=== PATIENT | male | born 1960 | race African-American/Black ===

== ENCOUNTER 2020-02-02 00:06 | Inpatient (IN) | payer OTHER ==
[2020-02-02 00:24] LABS: #Eosinphils 0.1 thou/uL (0.0-0.7); #Lymphocytes 1.2 thou/uL (1.20-3.40); #Monocytes 0.7 thou/uL (0.11-0.59); #Neutrophils 8.1 thou/uL (1.40-6.50); %Basophils 0.3 % (0.0-1.0); %Eosinophils 0.5 % (0.0-10.0); %Lymphocytes 11.5 % (21.0-51.0); %Monocytes 6.9 % (0.0-10.0); %Neutrophils 80.7 % (42.0-75.0); Hemoglobin 13.6 g/dL (14.0-18.0); Mean Corpuscular HGB CONC 34.9 g/dL (32.0-36.0); Mean Corpuscular Hemoglobin 34.7 pg (27.0-31.0); Mean Corpuscular Volume 99.3 fL (78.0-98.0); Platelet Count 202 thou/uL (130-400); RBC Distribution Width 12.3 % (11.5-14.5); Red Blood Cell (RBC) Count 3.92 mill/uL (4.70-6.10)
[2020-02-02] MEDS ORDERED: methylPREDNISolone Sod Succ/PF 125 MG/2 ML VIAL ONE (00:27)
[2020-02-02 00:31] LABS: INR-International Normal Ratio 1.2; PTT 27.2 sec (22.9-36.1); Prothrombin Time 15.1 sec (12.0-14.7)
[2020-02-02 00:34] LABS: Actual Bicarbonate (HCO3a) 16.4 mEq/L (22-28); Analyzer IN Cardio ER; Base Excess (BEa) -8.5 mEq/L (-2.0 to +3.0); CO2 Tension 32.1 mmHg (35.0-45.0); Calcium, Ionized (arterial) 0.73 mmol/L (1.12-1.30); Carboxyhemoglobin (COHb) 1.6 gm% (0.0-3.0); Hemoglobin (Hb) 12.5 g/dL (14.0-18.0); O2 Tension (PaO2), arterial 242.8 mmHg (80.0-100.0); Potassium - ABG Lab 2.86 mmol/L (3.70-5.30); pH, Arterial 7.33 (7.35-7.45)
[2020-02-02] MEDS ORDERED: Norepinephrine 8 MG/0.9% NS 250 ML ONE (00:35)
[2020-02-02 00:38] LABS: ALV-art Gradient 430.075 mmHg (0-20); Puncture Site RBA
[2020-02-02 00:40] LABS: ALT (SGPT) 37 U/L (8-55); AST (SGOT) 96 U/L (5-34); Albumin 2.9 g/dL (3.5-5.0); Alcohol 231 mg/dL (Less than 10); Alkaline Phosphatase 58 U/L (40-110); Anion Gap 16 mmol/L (10-20); BUN (Urea Nitrogen) 8 mg/dL (8.4-25.7); Bilirubin, Total 0.3 mg/dL (0.2-1.2); Calc. Creatinine Clearance 0 mL/min (70-130); Carbon Dioxide 15 mmol/L (22-29); Chloride 107 mmol/L (98-107); Globulin 2.4 g/dL (2.4-3.5); Glucose 250 mg/dL (70-105); Potassium 3.4 mmol/L (3.5-5.1); Protein, Total 5.3 g/dL (6.0-8.3); Sodium 135 mmol/L (136-145)
[2020-02-02] MEDS ORDERED: Propofol 1,000 MG/100 ML VIAL IV ONE (00:45)
[2020-02-02] MEDS ORDERED: Midazolam HCl 2 mg/2 ml Vial ONE (00:45)
[2020-02-02 01:07] LABS: CKMB 66.3 ng/mL (0-6.6)
[2020-02-02] MEDS ORDERED: Fentanyl 100 MCG/2 ML VIAL ONE (01:07)
[2020-02-02 01:14] LABS: SARS-CoV-2 NAA Rapid Test Not Detected (NotDetected)
[2020-02-02] MEDS ORDERED: Dextrose 50% Abboject 50 ML SYRINGE SLOW IVP PRN (01:44)
[2020-02-02] MEDS ORDERED: Ondansetron PF 4 MG/2 ML Vial IVP PRN (01:44)
[2020-02-02] MEDS ORDERED: Dextrose 5% in Water 1,000 ML IV PRN (01:44)
[2020-02-02] MEDS ORDERED: fentaNYL Citrate/PF 2,000 MCG in Sodium Chloride 0.9% 60 ML IV SCH (01:45)
[2020-02-02] MEDS ORDERED: Morphine 2 MG/ML VIAL SLOW IVP PRN (02:00)
[2020-02-02] MEDS ORDERED: Fentanyl BOLUS 250 ML IVPB PRN ×2 (02:00→23:45)
[2020-02-02] MEDS ORDERED: Propofol BOLUS 1,000 MG/100 ML VIAL IV PRN (02:00)
[2020-02-02] MEDS ORDERED: Ventilator Sedation Protocol 1 EACH FS SCH (02:00)
[2020-02-02] MEDS ORDERED: Lorazepam 2 MG/ML VIAL SLOW IVP PRN ×2 (02:00→15:25)
[2020-02-02 02:12] LABS: #Lymphocytes 0.9 thou/uL (1.20-3.40); #Monocytes 1.2 thou/uL (0.11-0.59); #Neutrophils 9.2 thou/uL (1.40-6.50); %Basophils 0.3 % (0.0-1.0); %Eosinophils 0.2 % (0.0-10.0); %Lymphocytes 8.3 % (21.0-51.0); %Monocytes 10.2 % (0.0-10.0); %Neutrophils 80.9 % (42.0-75.0); Hemoglobin 13.3 g/dL (14.0-18.0); Mean Corpuscular HGB CONC 32.9 g/dL (32.0-36.0); Mean Corpuscular Hemoglobin 32.9 pg (27.0-31.0); Mean Platelet Volume 7.4 fL (7.4-10.4); Platelet Count 184 thou/uL (130-400); RBC Distribution Width 12.8 % (11.5-14.5); Red Blood Cell (RBC) Count 4.03 mill/uL (4.70-6.10); White Blood Cell (WBC) Count 11.3 thou/uL (4.8-10.8)
[2020-02-02 02:35] LABS: Lactic Acid 9.7 mmol/L (0.5-2.2)
[2020-02-02 02:41] LABS: Anion Gap 22 mmol/L (10-20); BUN (Urea Nitrogen) 9 mg/dL (8.4-25.7); Calc. Creatinine Clearance 0 mL/min (70-130); Calcium 8.1 mg/dL (7.8-10.44); Carbon Dioxide 15 mmol/L (22-29); Chloride 106 mmol/L (98-107); Glucose 173 mg/dL (70-105); Magnesium 2.3 mg/dL (1.6-2.6); Phosphorus 4.3 mg/dL (2.3-4.7); Potassium 3.9 mmol/L (3.5-5.1); Sodium 139 mmol/L (136-145)
[2020-02-02] MEDS: Sodium Chloride 0.9% 1,000 ML IV SCH ×4 (03:30→23:10)
[2020-02-02 03:39] LABS: Actual Bicarbonate (HCO3a) 18.2 mEq/L (22-28); Analyzer IN Cardio ER; Base Excess (BEa) -6.1 mEq/L (-2.0 to +3.0); CO2 Tension 32.3 mmHg (35.0-45.0); Calcium, Ionized (arterial) 1.07 mmol/L (1.12-1.30); Carboxyhemoglobin (COHb) 0.3 gm% (0.0-3.0); Hemoglobin (Hb) 12.7 g/dL (14.0-18.0); O2 Tension (PaO2), arterial 474.4 mmHg (80.0-100.0); Potassium - ABG Lab 3.36 mmol/L (3.70-5.30); pH, Arterial 7.37 (7.35-7.45)
[2020-02-02 03:44] LABS: ALV-art Gradient 198.225 mmHg (0-20); Puncture Site A-LINE
[2020-02-02 04:50] LABS: Bilirubin Negative (Negative); Blood, Urine Large (Negative); Glucose, Urine (Dipstick) 100 mg/dL (Negative); Ketone, Urine Negative (Negative); Leukocyte Negative (Negative); Nitrite Negative (Negative); Protein, Urine (Dipstick) 30 mg/dL (Neg-Trace); Urobilinogen 0.2 mg/dL (Less than 2)
[2020-02-02] MEDS ORDERED: Fentanyl 100 MCG/2 ML VIAL SLOW IVP PRN ×2 (04:57→15:22)
[2020-02-02 05:02] LABS: Medtox Reader # READER 4; Phencyclidine (PCP) Not Detected (NotDetected); THC/Cannabinoid Screen Not Detected (NotDetected)
[2020-02-02 05:03] LABS: Amphetamine Not Detected (NotDetected); Barbiturates Screen Not Detected (NotDetected); Benzodiazepine Screen Not Detected (NotDetected); Cocaine Metabolite Screen Detected (NotDetected); Medtox Control Line Valid? VALID (VALID); Methadone Not Detected (NotDetected); Methamphetamine Not Detected (NotDetected); Opiate Screen Not Detected (NotDetected); Oxycodone Screen Not Detected (NotDetected); Tricyclic Screen Not Detected (NotDetected)
[2020-02-02 05:06] LABS: Bacteria/HPF Rare-Few HPF (None Seen); Clarity Clear (Clear); RBC/HPF 21-50 HPF (0-3); Squamous Epithelial 0-3 HPF (0-3); WBC/HPF 0-3 HPF (0-3)
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
[2020-02-02 06:25] LABS: Lactic Acid 3.8 mmol/L (0.5-2.2)
[2020-02-02 06:33] LABS: Anion Gap 16 mmol/L (10-20); BUN (Urea Nitrogen) 9 mg/dL (8.4-25.7); Calc. Creatinine Clearance 0 mL/min (70-130); Calcium 7.6 mg/dL (7.8-10.44); Carbon Dioxide 21 mmol/L (22-29); Chloride 108 mmol/L (98-107); Glucose 164 mg/dL (70-105); Magnesium 1.6 mg/dL (1.6-2.6); Phosphorus 2.1 mg/dL (2.3-4.7); Potassium 3.6 mmol/L (3.5-5.1); Sodium 141 mmol/L (136-145)
[2020-02-02 06:37] LABS: Troponin I 0.677 ng/mL (< 0.028)
[2020-02-02] MEDS ORDERED: Potassium Phosphate 30 MMOL in Sodium Chloride 0.9% 250 ML 250 ML IVPB SCH (06:45)
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
[2020-02-02] MEDS ORDERED: Magnesium 2 GM/50 ML 2 GM in Premix Bag 1 BAG IVPB SCH (07:30)
--- NOTE | 2020-02-02 07:51 | RAD ---
EXAM: XR Pelvis AP STANDARD PROVIDED CLINICAL HISTORY: Trauma COMPARISON: None FINDINGS: Partially visualized comminuted right subtrochanteric femoral fracture. Mildly displaced intertrochan teric left proximal femoral fracture. No additional fracture is evident. Hip joint spaces appear maintained. IMPRESSION: Bilateral proximal femoral fractures.
--- NOTE | 2020-02-02 07:52 | RAD ---
EXAM: XR Ankle Lt 2 View PROVIDED CLINICAL HISTORY: Trauma COMPARISON: None FINDINGS: Markedly comminuted, displaced and apex anteriorly-laterally angulated fracture of the distal tibial metadiaphyseal region with intra-articular extension and medial malleolar fragment. Displaced and laterally angulated distal fibular diaphyseal fracture. The ankle mortise appears maintained. No nadine tional fracture is evident. IMPRESSION: Displaced distal tibial and fibular fractures.
[2020-02-02 07:53] LABS: Actual Bicarbonate (HCO3a) 19.9 mEq/L (22-28); Base Excess (BEa) -3.4 mEq/L (-2.0 to +3.0); CO2 Tension 30.6 mmHg (35.0-45.0); Calcium, Ionized (arterial) 1.08 mmol/L (1.12-1.30); Carboxyhemoglobin (COHb) 0.3 gm% (0.0-3.0); Hemoglobin (Hb) 12.2 g/dL (14.0-18.0); O2 Tension (PaO2), arterial 486.6 mmHg (80.0-100.0); Potassium - ABG Lab 3.72 mmol/L (3.70-5.30); pH, Arterial 7.43 (7.35-7.45)
--- NOTE | 2020-02-02 07:53 | RAD ---
EXAM: XR Forearm Lt 2 View STANDARD PROVIDED CLINICAL HISTORY: Trauma COMPARISON: None FINDINGS: Nondisplaced supracondylar distal humeral fracture. No evidence for forearm fracture. IMPRESSION: As above.
--- NOTE | 2020-02-02 07:54 | RAD ---
EXAM: XR Elbow Lt 2 View PROVIDED CLINICAL HISTORY: Trauma COMPARISON: None FINDINGS: Supracondylar distal humeral fracture, without evidence for intra-articular extension. Mild displacem ent. No additional fracture. Alignment appears otherwise anatomic. IMPRESSION: As above.
--- NOTE | 2020-02-02 07:56 | RAD ---
EXAM: XR Chest 1 View Portable PROVIDED CLINICAL HISTORY: Trauma COMPARISON: None FINDINGS: Cardiac and mediastinal silhouette is within normal limits. Endotracheal tube is noted, tip of which projects just inferior to the thoracic inlet. No focal consolidation is evident. The supine nature the examination is limited in sensitivity for detection of pleural fluid and pneumothorax, without ev idence for such. Correlate with subsequently performed chest CT. IMPRESSION: As above.
[2020-02-02 07:59] LABS: Puncture Site ALINE
--- NOTE | 2020-02-02 07:59 | RAD ---
EXAM: XR Hand Lt 2 View PROVIDED CLINICAL HISTORY: Trauma COMPARISON: None FINDINGS: There is an irregular appearance to the thumb metacarpal cortex distally, with multiple osseous densi ties seen. This is compatible with age-indeterminate fracture. No additional fracture is evident. Degenerative changes are seen at the STT joint. There is apparent widening of the scapholunate interv al. IMPRESSION: 1. Age-indeterminate fracture thumb metacarpal distally. Correlation with dedicated thumb radiographs recommended. 2. Widening of the scapholunate interval compatible with scapholunate insufficiency. Correlation with dedicated wrist radiographs recommended.
[2020-02-02] MEDS ORDERED: Calcium Chloride 1 GM/10 ML Abboject SYRINGE IVP SCH (08:00)
--- NOTE | 2020-02-02 08:00 | RAD ---
EXAM: XR Femur Lt 2 View STANDARD PROVIDED CLINICAL HISTORY: Trauma COMPARISON: None FINDINGS: Displaced intertrochanteric left proximal femoral fracture. No additional fracture is evident. IMPRESSION: As above.
--- NOTE | 2020-02-02 08:01 | RAD ---
EXAM: XR Femur Rt 2 View STANDARD PROVIDED CLINICAL HISTORY: Trauma COMPARISON: None FINDINGS: There is a comminuted, displaced fracture of the subtrochanteric right proximal femoral diaphysis wit h butterfly fragment. There is conspicuous apex lateral angulation. Advanced degenerative changes are partially visualized at the knee. No additional fracture is evident. IMPRESSION: Comminuted, displaced subtrochanteric right proximal femoral fracture.
--- NOTE | 2020-02-02 08:19 | RAD ---
XR Ankle Rt 2 View INDICATION: Trauma COMPARISON: None. FINDINGS: Bones: There is a segmental fracture involving the distal fibular shaft. The comminuted mid shaft fib ular fracture component is displaced laterally one half shaft width. There is an obliquely oriented nondisplaced distal fibular shaft component. Ankle mortise: Symmetric. Talar Dome: Intact. Subtalar joint: Normal. Visualized hindfoot: There is enthesopathic change off the calcaneus. Periarticular soft tissues: There is soft tissue gas involving the tibiotalar joint, medial ankle sof t tissues and the dorsal aspect of the foot suspicious for extensive laceration. No radiopaque foreign body is evident. IMPRESSION: 1. Segmental mildly displaced fibular shaft fracture. 2. Soft tissue injury to the ankle and hindfoot suspicious for lacerations. No radiopaque foreign bod y demonstrated. There is a suspected open injury to the right ankle.
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
[2020-02-02] MEDS: Famotidine/PF 20 mg/2ml Vial SLOW IVP SCH ×2 (08:48→21:12)
[2020-02-02] MEDS: Propofol 1,000 MG/100 ML VIAL IV PRN ×4 (08:51→22:11)
[2020-02-02] MEDS ORDERED: Famotidine/PF 20 mg/2ml Vial SLOW IVP SCH (09:00)
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
[2020-02-02] MEDS ORDERED: Calcium Chloride 1 GM/10 ML Abboject SYRINGE ONE (12:23)
[2020-02-02] MEDS ORDERED: EPINEPHrine 1 MG/10 ML Abboject SYRINGE ONE (12:23)
[2020-02-02] MEDS ORDERED: Sodium Bicarb 50 MEQ/50 ML Abboject 8.4% SYRINGE ONE (12:23)
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
[2020-02-02] MEDS ORDERED: Iopamidol-370 76% 500 ML 1 ML ONE (14:05)
[2020-02-02] MEDS: CEFAZOLIN 2 GM in Premix Bag 1 BAG IVPB SCH ×2 (14:34→21:11)
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
[2020-02-02 15:16] LABS: Lactic Acid 2.8 mmol/L (0.5-2.2)
[2020-02-02 15:19] LABS: Anion Gap 13 mmol/L (10-20); BUN (Urea Nitrogen) 12 mg/dL (8.4-25.7); Calc. Creatinine Clearance 98 mL/min (70-130); Calcium 7.8 mg/dL (7.8-10.44); Carbon Dioxide 22 mmol/L (22-29); Chloride 108 mmol/L (98-107); Glucose 143 mg/dL (70-105); Potassium 4.9 mmol/L (3.5-5.1); Sodium 138 mmol/L (136-145)
[2020-02-02 15:25] LABS: Band 30 % (5-11); Lymphocytes 5 % (21-51); MDiff Complete? YES; Mean Corpuscular HGB CONC 34.5 g/dL (32.0-36.0); Mean Corpuscular Hemoglobin 33.6 pg (27.0-31.0); Mean Corpuscular Volume 97.5 fL (78.0-98.0); Mean Platelet Volume 7.3 fL (7.4-10.4); Monocytes 11 % (0-10); Neutrophil 50 % (42-75); Platelet Count 153 thou/uL (130-400); Platelet Morphology Comment Appears Adequate; Polychromasia SLIGHT = 2-3 cells (100X) (0-2/hpf); RBC Distribution Width 12.9 % (11.5-14.5); Reactive Lymphocytes 4 % (0-10); Red Blood Cell (RBC) Count 3.26 mill/uL (4.70-6.10); White Blood Cell (WBC) Count 7.8 thou/uL (4.8-10.8)
[2020-02-02] MEDS: Lorazepam 2 MG/ML VIAL SLOW IVP PRN (15:37)
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
[2020-02-02] MEDS: Oxazepam 10 MG CAP PO SCH (21:12)
[2020-02-02] MEDS ORDERED: Sodium Chloride 0.9% 1,000 ML IV SCH (21:15)
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
[2020-02-02] MEDS: Acetaminophen 650 MG/20.3 ML UDCUP PO SCH (23:08)
[2020-02-02] MEDS ORDERED: fentaNYL Citrate/PF 2,000 MCG in Sodium Chloride 0.9% 60 ML IV PRN (23:33)
[2020-02-03] MEDS: fentaNYL Citrate/PF 2,000 MCG in Sodium Chloride 0.9% 60 ML IV SCH ×2 (01:48→19:17)
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
[2020-02-03] MEDS: Acetaminophen 650 MG/20.3 ML UDCUP PO SCH ×3 (05:13→17:30)
[2020-02-03] MEDS: CEFAZOLIN 2 GM in Premix Bag 1 BAG IVPB SCH ×3 (05:13→22:23)
[2020-02-03] MEDS: Oxazepam 10 MG CAP PO SCH ×3 (05:13→22:24)
[2020-02-03] MEDS: Sodium Chloride 0.9% 1,000 ML IV SCH (05:26)
[2020-02-03] MEDS: Propofol 1,000 MG/100 ML VIAL IV PRN ×2 (05:51→19:21)
[2020-02-03 05:55] LABS: Lactic Acid 3.3 mmol/L (0.5-2.2)
[2020-02-03 05:57] LABS: Band 14 % (5-11); Hemoglobin 9.4 g/dL (14.0-18.0); Lymphocytes 20 % (21-51); MDiff Complete? YES; Mean Corpuscular HGB CONC 34.1 g/dL (32.0-36.0); Mean Corpuscular Hemoglobin 33.8 pg (27.0-31.0); Mean Corpuscular Volume 99.3 fL (78.0-98.0); Mean Platelet Volume 7.2 fL (7.4-10.4); Monocytes 8 % (0-10); Neutrophil 58 % (42-75); Platelet Count 127 thou/uL (130-400); RBC Distribution Width 12.7 % (11.5-14.5); Red Blood Cell (RBC) Count 2.78 mill/uL (4.70-6.10); White Blood Cell (WBC) Count 6.2 thou/uL (4.8-10.8)
[2020-02-03 06:02] LABS: Anion Gap 10 mmol/L (10-20); BUN (Urea Nitrogen) 13 mg/dL (8.4-25.7); Calc. Creatinine Clearance 113 mL/min (70-130); Calcium 7.6 mg/dL (7.8-10.44); Carbon Dioxide 26 mmol/L (22-29); Chloride 110 mmol/L (98-107); Glucose 150 mg/dL (70-105); Magnesium 2.4 mg/dL (1.6-2.6); Phosphorus 2.9 mg/dL (2.3-4.7); Potassium 4.2 mmol/L (3.5-5.1); Sodium 142 mmol/L (136-145)
[2020-02-03 06:29] LABS: CK (CPK) 10834 U/L (30-200)
[2020-02-03] MEDS ORDERED: NEOMYCIN-POLYMYXIN-HC EAR SUSP 200 DROP/10 ML BOT ONE (06:36)
[2020-02-03] MEDS ORDERED: Midazolam HCl 5 mg/5 ml Vial ONE (07:29)
[2020-02-03] MEDS ORDERED: Phenylephrine 10 MG/ML VIAL ONE (07:29)
[2020-02-03] MEDS ORDERED: Fentanyl 250 MCG/5 ML VIAL ONE (07:29)
[2020-02-03] MEDS ORDERED: Neomycin-Polymyxin 1 ML AMP ONE (07:41)
[2020-02-03 07:50] LABS: Actual Bicarbonate (HCO3a) 25.2 mEq/L (22-28); Base Excess (BEa) -0.6 mEq/L (-2.0 to +3.0); CO2 Tension 46.5 mmHg (35.0-45.0); Carboxyhemoglobin (COHb) 0.3 gm% (0.0-3.0); Hemoglobin (Hb) 9.4 g/dL (14.0-18.0); O2 Tension (PaO2), arterial 136.8 mmHg (80.0-100.0); Potassium - ABG Lab 4.21 mmol/L (3.70-5.30); pH, Arterial 7.35 (7.35-7.45)
[2020-02-03 07:51] LABS: Puncture Site LINE
[2020-02-03 07:52] LABS: ALV-art Gradient 161.575 mmHg (0-20)
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
[2020-02-03] MEDS ORDERED: PHENYLEPHRINE-NS 100 MCG/ML 10 ML SYRINGE ONE (09:37)
[2020-02-03] MEDS ORDERED: Rocuronium Bromide 10 MG/ML (10ML VIAL) ONE (09:37)
[2020-02-03] MEDS ORDERED: Vecuronium 10 MG VIAL ONE (09:37)
[2020-02-03] MEDS ORDERED: Calcium Chloride 1 GM/10 ML Abboject SYRINGE IVP SCH (10:00)
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
[2020-02-03] MEDS: Famotidine/PF 20 mg/2ml Vial SLOW IVP SCH ×2 (12:17→20:25)
[2020-02-03] MEDS: Multivitamin W/ Minerals 1 TAB PO SCH (12:17)
[2020-02-03] MEDS: Thiamine 100 MG TAB PO SCH (12:17)
[2020-02-03] MEDS: Folic Acid 1 MG TAB PO SCH (12:17)
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
[2020-02-03] MEDS: Lactated Ringer's 1,000 ML IV SCH ×3 (13:16→20:22)
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
--- NOTE | 2020-02-03 13:39 | RAD ---
Exam: Left hip 2 views: HISTORY: Status post trochanteric nail placement with 4 portable fluoroscopic spot views. COMPARISON: 02/02/2020 FINDINGS: Image documentation for intratrochanteric hip nail placement without periprostatic fracture or disloc ation. IMPRESSION: Intertrochanteric hip nail placement.
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
--- NOTE | 2020-02-03 13:51 | PRG ---
DATE OF SERVICE: 02/03/2020 Mr. Lynch is just back from orthopedic surgery and could not be examined. A followup MRI scan for a possible abnormality in the thoracic spine was largely unremarkable. With respect to his L4 fracture, we are awaiting his brace. Once the brace is placed, it should be on at all times and we can then consider gradual mobilization in the context of treatment of his other injuries. Job ID: [id number]
--- NOTE | 2020-02-03 14:24 | EKG ---
Test Reason : Blood Pressure : / mmHG Vent. Rate : 104 BPM Atrial Rate : 104 BPM P-R Int : 142 ms QRS Dur : 082 ms QT Int : 374 ms P-R-T Axes : 071 -57 045 degrees QTc Int : 491 ms Sinus tachycardia Left anterior fascicular block Junctional ST depression, probably normal Abnormal ECG Confirmed by JASSON LOMELI DO ([id number]), proposal editor SOURAV BRIGHT ([id number]) on 02/03/2020 2:24:33 PM Referred By: Confirmed By:JASSON LOMELI DO
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
[2020-02-03 15:25] LABS: Actual Bicarbonate (HCO3a) 23.3 mEq/L (22-28); Base Excess (BEa) -3.2 mEq/L (-2.0 to +3.0); CO2 Tension 48.2 mmHg (35.0-45.0); Calcium, Ionized (arterial) 1.18 mmol/L (1.12-1.30); Carboxyhemoglobin (COHb) 0.3 gm% (0.0-3.0); Hemoglobin (Hb) 10.7 g/dL (14.0-18.0); O2 Tension (PaO2), arterial 103.1 mmHg (80.0-100.0); Potassium - ABG Lab 4.48 mmol/L (3.70-5.30)
[2020-02-03 15:44] LABS: Hemoglobin 8.3 g/dL (14.0-18.0); Mean Corpuscular HGB CONC 34.7 g/dL (32.0-36.0); Mean Corpuscular Hemoglobin 33.9 pg (27.0-31.0); Mean Corpuscular Volume 97.8 fL (78.0-98.0); Mean Platelet Volume 7.5 fL (7.4-10.4); Platelet Count 129 thou/uL (130-400); RBC Distribution Width 12.6 % (11.5-14.5); Red Blood Cell (RBC) Count 2.45 mill/uL (4.70-6.10); White Blood Cell (WBC) Count 5.6 thou/uL (4.8-10.8)
[2020-02-03 16:02] LABS: Lactic Acid 3.8 mmol/L (0.5-2.2)
[2020-02-03 16:06] LABS: Anion Gap 13 mmol/L (10-20); BUN (Urea Nitrogen) 12 mg/dL (8.4-25.7); Calc. Creatinine Clearance 125 mL/min (70-130); Calcium 8.2 mg/dL (7.8-10.44); Carbon Dioxide 23 mmol/L (22-29); Chloride 111 mmol/L (98-107); Glucose 213 mg/dL (70-105); Magnesium 2.2 mg/dL (1.6-2.6); Phosphorus 2.5 mg/dL (2.3-4.7); Potassium 4.5 mmol/L (3.5-5.1); Sodium 142 mmol/L (136-145)
[2020-02-03 16:33] LABS: CK (CPK) 9830 U/L (30-200)
[2020-02-03] MEDS: Piperacillin/Tazobactam 3.375 GM in Sodium Chloride 0.9% 100 ML IVPB SCH (20:22)
[2020-02-03] MEDS: Silver Sulfadiazine 50 GM TUBE TOP SCH (20:30)
[2020-02-03 22:10] LABS: Hemoglobin 7.6 g/dL (14.0-18.0); Mean Corpuscular HGB CONC 34.3 g/dL (32.0-36.0); Mean Corpuscular Hemoglobin 34.1 pg (27.0-31.0); Mean Corpuscular Volume 99.5 fL (78.0-98.0); Mean Platelet Volume 7.5 fL (7.4-10.4); Platelet Count 120 thou/uL (130-400); RBC Distribution Width 12.5 % (11.5-14.5); Red Blood Cell (RBC) Count 2.24 mill/uL (4.70-6.10); White Blood Cell (WBC) Count 3.8 thou/uL (4.8-10.8)
[2020-02-03 22:26] LABS: Lactic Acid 2.9 mmol/L (0.5-2.2)
[2020-02-03 22:42] LABS: Anion Gap 10 mmol/L (10-20); BUN (Urea Nitrogen) 10 mg/dL (8.4-25.7); Calc. Creatinine Clearance 133 mL/min (70-130); Calcium 7.7 mg/dL (7.8-10.44); Carbon Dioxide 26 mmol/L (22-29); Chloride 111 mmol/L (98-107); Glucose 139 mg/dL (70-105); Magnesium 2.1 mg/dL (1.6-2.6); Phosphorus 1.7 mg/dL (2.3-4.7); Potassium 4.4 mmol/L (3.5-5.1); Sodium 143 mmol/L (136-145)
[2020-02-03] MEDS ORDERED: Sodium Phosphate 30 MMOL in Sodium Chloride 0.9% 250 ML 250 ML IVPB SCH (23:00)
--- NOTE | 2020-02-03 23:51 | RAD ---
XR Chest 1 View Portable HISTORY: Respiratory failure, decreasing oxygen saturations COMPARISON: Earlier exam of 5:28 AM from same date FINDINGS: Endotracheal and nasogastric tubes remain in place. The heart size is stable. Interval wors ening of opacities in the lower lung zones is seen. No pneumothoraces are identified. Accompanying small effusions cannot be excluded.
[2020-02-04 00:05] LABS: Actual Bicarbonate (HCO3a) 24.6 mEq/L (22-28); Base Excess (BEa) -0.4 mEq/L (-2.0 to +3.0); CO2 Tension 41.8 mmHg (35.0-45.0); Calcium, Ionized (arterial) 1.09 mmol/L (1.12-1.30); Carboxyhemoglobin (COHb) 0.4 gm% (0.0-3.0); Hemoglobin (Hb) 8.3 g/dL (14.0-18.0); O2 Tension (PaO2), arterial 80.2 mmHg (80.0-100.0); pH, Arterial 7.39 (7.35-7.45)
[2020-02-04 00:08] LABS: Puncture Site RBA
[2020-02-04] MEDS: Acetaminophen 650 MG/20.3 ML UDCUP PO SCH ×4 (00:34→18:08)
[2020-02-04] MEDS ORDERED: Calcium Chloride 1 GM/10 ML Abboject SYRINGE IVP SCH (01:45)
[2020-02-04] MEDS: Piperacillin/Tazobactam 3.375 GM in Sodium Chloride 0.9% 100 ML IVPB SCH ×4 (02:04→20:04)
[2020-02-04] MEDS: Lactated Ringer's 1,000 ML IV SCH ×5 (02:04→20:11)
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
[2020-02-04] MEDS: Propofol 1,000 MG/100 ML VIAL IV PRN ×4 (03:53→21:51)
[2020-02-04 04:31] LABS: Lactic Acid 3.1 mmol/L (0.5-2.2)
[2020-02-04] MEDS: Lorazepam 2 MG/ML VIAL SLOW IVP PRN (04:37)
[2020-02-04 04:45] LABS: Anion Gap 11 mmol/L (10-20); BUN (Urea Nitrogen) 9 mg/dL (8.4-25.7); Calc. Creatinine Clearance 127 mL/min (70-130); Carbon Dioxide 26 mmol/L (22-29); Chloride 111 mmol/L (98-107); Glucose 128 mg/dL (70-105); Phosphorus 2.4 mg/dL (2.3-4.7); Potassium 4.1 mmol/L (3.5-5.1); Sodium 144 mmol/L (136-145)
[2020-02-04 04:48] LABS: CK (CPK) 6991 U/L (30-200)
[2020-02-04 04:56] LABS: Band 36 % (5-11); Lymphocytes 26 % (21-51); MDiff Complete? YES; Mean Corpuscular HGB CONC 34.4 g/dL (32.0-36.0); Mean Corpuscular Hemoglobin 33.6 pg (27.0-31.0); Mean Corpuscular Volume 97.5 fL (78.0-98.0); Mean Platelet Volume 7.8 fL (7.4-10.4); Metamyelocyte 1 % (0-0); Monocytes 11 % (0-10); Neutrophil 26 % (42-75); Platelet Count 106 thou/uL (130-400); Platelet Morphology Comment Appears Decreased; RBC Distribution Width 13.2 % (11.5-14.5); Red Blood Cell (RBC) Count 2.38 mill/uL (4.70-6.10); White Blood Cell (WBC) Count 1.9 thou/uL (4.8-10.8)
[2020-02-04] MEDS: Oxazepam 10 MG CAP PO SCH ×3 (06:30→21:52)
[2020-02-04] MEDS: CEFAZOLIN 2 GM in Premix Bag 1 BAG IVPB SCH ×3 (06:30→21:51)
[2020-02-04] MEDS: fentaNYL Citrate/PF 2,000 MCG in Sodium Chloride 0.9% 60 ML IV SCH ×2 (07:20→19:50)
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
[2020-02-04 07:39] LABS: CO2 Tension 41.2 mmHg (35.0-45.0); Calcium, Ionized (arterial) 1.14 mmol/L (1.12-1.30); Carboxyhemoglobin (COHb) 0.3 gm% (0.0-3.0); Hemoglobin (Hb) 7.4 g/dL (14.0-18.0); O2 Tension (PaO2), arterial 77.2 mmHg (80.0-100.0); Potassium - ABG Lab 3.95 mmol/L (3.70-5.30); pH, Arterial 7.38 (7.35-7.45)
[2020-02-04 07:43] LABS: Puncture Site L.B.
[2020-02-04] MEDS ORDERED: FLU VACC QS2020-21(6MOS UP)/PF 60 MCG/0.5 ML SYRINGE IM ONE (09:00)
[2020-02-04] MEDS: Famotidine/PF 20 mg/2ml Vial SLOW IVP SCH ×2 (09:13→20:05)
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
--- NOTE | 2020-02-04 09:23 | RAD ---
EXAM: Chest one view: HISTORY: Right lower lobe pneumonia COMPARISON: None FINDINGS: NG tube and endotracheal tubes remain in place. Heart size: Within normal limits. Lungs: Fairly extensive bilateral mostly alveolar patchy parenchymal changes particularly through the mid and lower portions of the lungs IMPRESSION: Evidence for stable extensive bilateral pneumonia
[2020-02-04] MEDS: Multivitamin W/ Minerals 1 TAB PO SCH (10:07)
[2020-02-04] MEDS: Folic Acid 1 MG TAB PO SCH (10:07)
[2020-02-04] MEDS: Thiamine 100 MG TAB PO SCH (10:07)
[2020-02-04] MEDS ORDERED: Furosemide 40 MG/4 ML VIAL ONE (11:44)
[2020-02-04] MEDS ORDERED: Furosemide 20 MG/2 ML VIAL SLOW IVP SCH (11:45)
[2020-02-04] MEDS ORDERED: Vancomycin 1.5 GRAM/300 ML BAG 1.5 GM in Premix Bag 1 BAG IVPB SCH (12:00)
[2020-02-04] MEDS: Silver Sulfadiazine 50 GM TUBE TOP SCH ×2 (13:06→20:12)
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
[2020-02-05] MEDS: Acetaminophen 650 MG/20.3 ML UDCUP PO SCH ×5 (00:28→23:25)
[2020-02-05] MEDS: Piperacillin/Tazobactam 3.375 GM in Sodium Chloride 0.9% 100 ML IVPB SCH ×4 (02:43→21:04)
[2020-02-05 04:32] LABS: #Eosinphils 0.1 thou/uL (0.0-0.7); #Lymphocytes 0.7 thou/uL (1.20-3.40); #Monocytes 0.6 thou/uL (0.11-0.59); #Neutrophils 3.9 thou/uL (1.40-6.50); %Basophils 0.1 % (0.0-1.0); %Eosinophils 1.7 % (0.0-10.0); %Lymphocytes 13.7 % (21.0-51.0); %Neutrophils 73.5 % (42.0-75.0); Hemoglobin 6.3 g/dL (14.0-18.0); Mean Corpuscular HGB CONC 33.9 g/dL (32.0-36.0); Mean Corpuscular Hemoglobin 32.6 pg (27.0-31.0); Mean Corpuscular Volume 96.4 fL (78.0-98.0); Mean Platelet Volume 7.8 fL (7.4-10.4); Platelet Count 127 thou/uL (130-400); RBC Distribution Width 13.4 % (11.5-14.5); Red Blood Cell (RBC) Count 1.92 mill/uL (4.70-6.10); White Blood Cell (WBC) Count 5.3 thou/uL (4.8-10.8)
[2020-02-05 04:56] LABS: Anion Gap 9 mmol/L (10-20); BUN (Urea Nitrogen) 13 mg/dL (8.4-25.7); CK (CPK) 3238 U/L (30-200); Calc. Creatinine Clearance 122 mL/min (70-130); Calcium 7.7 mg/dL (7.8-10.44); Carbon Dioxide 28 mmol/L (22-29); Chloride 110 mmol/L (98-107); Glucose 112 mg/dL (70-105); Magnesium 2.2 mg/dL (1.6-2.6); Phosphorus 2.5 mg/dL (2.3-4.7); Potassium 3.8 mmol/L (3.5-5.1); Sodium 143 mmol/L (136-145)
[2020-02-05] MEDS: Lactated Ringer's 1,000 ML IV SCH ×3 (05:04→20:53)
[2020-02-05] MEDS: CEFAZOLIN 2 GM in Premix Bag 1 BAG IVPB SCH ×2 (05:04→15:47)
[2020-02-05] MEDS: Propofol 1,000 MG/100 ML VIAL IV PRN (05:05)
[2020-02-05] MEDS: Oxazepam 10 MG CAP PO SCH ×3 (05:05→21:05)
[2020-02-05 07:19] LABS: Base Excess (BEa) 1.5 mEq/L (-2.0 to +3.0); CO2 Tension 47.4 mmHg (35.0-45.0); Carboxyhemoglobin (COHb) 0.2 gm% (0.0-3.0); Hemoglobin (Hb) 6.8 g/dL (14.0-18.0); O2 Tension (PaO2), arterial 123.1 mmHg (80.0-100.0); Potassium - ABG Lab 3.76 mmol/L (3.70-5.30); Puncture Site RB; pH, Arterial 7.37 (7.35-7.45)
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
[2020-02-05] MEDS: fentaNYL Citrate/PF 2,000 MCG in Sodium Chloride 0.9% 60 ML IV SCH (08:38)
--- NOTE | 2020-02-05 08:43 | RAD ---
PORTABLE CHEST: HISTORY: Respiratory failure. COMPARISON: Prior day's exam. FINDINGS: Endotracheal and NG tubes remain in satisfactory position. Bibasilar pleural and parenchymal lung ch anges are stable. IMPRESSION: Fairly extensive consolidation in the lung bases with possible associated effusion appears stable as compared to the prior exam. Endotracheal and NG tubes remain in place. POS: OFF
[2020-02-05] MEDS ORDERED: Iopamidol-370 76% 500 ML 1 ML ONE (09:03)
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
[2020-02-05] MEDS ORDERED: Calcium Gluconate 4.6 MEQ in Sodium Chloride 0.9% 100 ML IVPB SCH (09:15)
[2020-02-05] MEDS ORDERED: Furosemide 20 MG/2 ML VIAL SLOW IVP SCH ×2 (09:15→09:45)
[2020-02-05] MEDS: Thiamine 100 MG TAB PO SCH (09:18)
[2020-02-05] MEDS: Multivitamin W/ Minerals 1 TAB PO SCH (09:18)
[2020-02-05] MEDS: Folic Acid 1 MG TAB PO SCH (09:18)
[2020-02-05] MEDS: Saccharomyces boulardii 250 MG CAP PO SCH (09:18)
[2020-02-05] MEDS: Famotidine/PF 20 mg/2ml Vial SLOW IVP SCH ×2 (09:19→21:05)
[2020-02-05] MEDS ORDERED: Iopamidol 370 76% 50 ML VIAL FS ONE (09:40)
[2020-02-05 10:40] LABS: Actual Bicarbonate (HCO3a) 23.1 mEq/L (22-28); Analyzer IN Cardio OR; Base Excess (BEa) -2.3 mEq/L (-2.0 to +3.0); CO2 Tension 42.1 mmHg (35.0-45.0); Calcium, Ionized (arterial) 1.03 mmol/L (1.12-1.30); Carboxyhemoglobin (COHb) 0.6 gm% (0.0-3.0); Hemoglobin (Hb) 8.9 g/dL (14.0-18.0); O2 Tension (PaO2), arterial 114.3 mmHg (80.0-100.0); Potassium - ABG Lab 4.11 mmol/L (3.70-5.30); pH, Arterial 7.36 (7.35-7.45)
[2020-02-05 10:40] LABS: Actual Bicarbonate (HCO3a) 24.8 mEq/L (22-28); Analyzer IN Cardio OR; CO2 Tension 46.7 mmHg (35.0-45.0); Calcium, Ionized (arterial) 1.05 mmol/L (1.12-1.30); Carboxyhemoglobin (COHb) 0.4 gm% (0.0-3.0); Hemoglobin (Hb) 9.1 g/dL (14.0-18.0); O2 Tension (PaO2), arterial 112.2 mmHg (80.0-100.0); Potassium - ABG Lab 4.09 mmol/L (3.70-5.30); pH, Arterial 7.34 (7.35-7.45)
[2020-02-05 10:50] LABS: Puncture Site ALINE
[2020-02-05 10:50] LABS: Puncture Site ALINE
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
[2020-02-05 17:33] LABS: Glucose 122 mg/dL (70-105)
[2020-02-05] MEDS: Furosemide 20 MG/2 ML VIAL SLOW IVP SCH (18:29)
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
[2020-02-05 20:18] LABS: Hemoglobin 7.1 g/dL (14.0-18.0); Mean Corpuscular HGB CONC 35.1 g/dL (32.0-36.0); Mean Corpuscular Hemoglobin 33.3 pg (27.0-31.0); Mean Corpuscular Volume 94.9 fL (78.0-98.0); Mean Platelet Volume 7.6 fL (7.4-10.4); Platelet Count 151 thou/uL (130-400); RBC Distribution Width 14.1 % (11.5-14.5); Red Blood Cell (RBC) Count 2.14 mill/uL (4.70-6.10); White Blood Cell (WBC) Count 6.6 thou/uL (4.8-10.8)
[2020-02-05 20:41] LABS: Phosphorus 2.4 mg/dL (2.3-4.7)
[2020-02-05 20:44] LABS: Anion Gap 13 mmol/L (10-20); BUN (Urea Nitrogen) 13 mg/dL (8.4-25.7); Calc. Creatinine Clearance 0 mL/min (70-130); Calcium 7.9 mg/dL (7.8-10.44); Carbon Dioxide 27 mmol/L (22-29); Chloride 109 mmol/L (98-107); Glucose 124 mg/dL (70-105); Magnesium 2.2 mg/dL (1.6-2.6); Potassium 3.7 mmol/L (3.5-5.1); Sodium 145 mmol/L (136-145)
[2020-02-05] MEDS: Silver Sulfadiazine 50 GM TUBE TOP SCH ×2 (20:52→21:45)
[2020-02-05] MEDS ORDERED: Vecuronium 10 MG VIAL IVP PRN (21:53)
[2020-02-05] MEDS ORDERED: Midazolam HCl 2 mg/2 ml Vial SLOW IVP PRN (21:53)
[2020-02-05] MEDS ORDERED: Sterile Water 10 ML VIAL FS PRN (21:58)
[2020-02-05] MEDS ORDERED: Lidocaine 1% w/Epinephrine 1:100K 20 ML VIAL IJ SCH (22:00)
[2020-02-05] MEDS ORDERED: Potassium Phosphate 15 MMOL in Sodium Chloride 0.9% 250 ML 250 ML IVPB SCH (22:15)
[2020-02-05 23:27] LABS: Glucose 145 mg/dL (70-105)
[2020-02-06] MEDS: fentaNYL Citrate/PF 2,000 MCG in Sodium Chloride 0.9% 60 ML IV SCH ×2 (00:27→11:04)
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
[2020-02-06] MEDS: Lactated Ringer's 1,000 ML IV SCH ×3 (00:58→11:26)
[2020-02-06] MEDS: Piperacillin/Tazobactam 3.375 GM in Sodium Chloride 0.9% 100 ML IVPB SCH ×4 (01:45→19:55)
[2020-02-06] MEDS: Furosemide 20 MG/2 ML VIAL SLOW IVP SCH ×2 (01:46→11:20)
[2020-02-06 05:11] LABS: Anion Gap 11 mmol/L (10-20); BUN (Urea Nitrogen) 13 mg/dL (8.4-25.7); CK (CPK) 2264 U/L (30-200); Calc. Creatinine Clearance 0 mL/min (70-130); Calcium 7.8 mg/dL (7.8-10.44); Carbon Dioxide 30 mmol/L (22-29); Chloride 108 mmol/L (98-107); Glucose 132 mg/dL (70-105); Magnesium 2.2 mg/dL (1.6-2.6); Phosphorus 2.4 mg/dL (2.3-4.7); Potassium 3.4 mmol/L (3.5-5.1); Sodium 146 mmol/L (136-145)
[2020-02-06] MEDS: Acetaminophen 650 MG/20.3 ML UDCUP PO SCH ×4 (05:33→23:30)
[2020-02-06] MEDS: Oxazepam 10 MG CAP PO SCH ×3 (05:33→21:25)
[2020-02-06 05:57] LABS: Hemoglobin 6.6 g/dL (14.0-18.0); Mean Corpuscular HGB CONC 34.7 g/dL (32.0-36.0); Mean Corpuscular Hemoglobin 33.1 pg (27.0-31.0); Mean Corpuscular Volume 95.5 fL (78.0-98.0); Mean Platelet Volume 7.8 fL (7.4-10.4); Platelet Count 155 thou/uL (130-400); RBC Distribution Width 13.8 % (11.5-14.5); Red Blood Cell (RBC) Count 1.98 mill/uL (4.70-6.10); White Blood Cell (WBC) Count 5.6 thou/uL (4.8-10.8)
[2020-02-06 06:05] LABS: Band 11 % (5-11); Eosinophils 4 % (0-10); Lymphocytes 12 % (21-51); MDiff Complete? YES; Monocytes 13 % (0-10); Neutrophil 60 % (42-75)
[2020-02-06] MEDS ORDERED: Potassium Phosphate 30 MMOL in Sodium Chloride 0.9% 250 ML 250 ML IVPB SCH (06:30)
[2020-02-06 07:33] LABS: Actual Bicarbonate (HCO3a) 28.1 mEq/L (22-28); Base Excess (BEa) 3.7 mEq/L (-2.0 to +3.0); CO2 Tension 41.6 mmHg (35.0-45.0); Calcium, Ionized (arterial) 1.06 mmol/L (1.12-1.30); Carboxyhemoglobin (COHb) 0.2 gm% (0.0-3.0); Hemoglobin (Hb) 6.9 g/dL (14.0-18.0); O2 Tension (PaO2), arterial 310.2 mmHg (80.0-100.0); Potassium - ABG Lab 3.37 mmol/L (3.70-5.30); pH, Arterial 7.45 (7.35-7.45)
[2020-02-06 07:36] LABS: Puncture Site RBA
[2020-02-06] MEDS ORDERED: Calcium Gluc 4.6 MEQ/10 ML (100 MG/ML) SLOW IVP ONE (07:46)
[2020-02-06] MEDS ORDERED: Calcium Gluconate 4.6 MEQ in Sodium Chloride 0.9% 100 ML IVPB SCH (08:00)
[2020-02-06] MEDS ORDERED: Sterile Water 10 ML ONE (09:10)
[2020-02-06] MEDS ORDERED: Vecuronium 10 MG VIAL IVP PRN ×2 (09:39→09:41)
[2020-02-06] MEDS ORDERED: Bacteriostatic Normal Saline 30 ML VIAL ONE (09:40)
[2020-02-06] MEDS ORDERED: Vecuronium 10 MG VIAL ONE (09:40)
--- NOTE | 2020-02-06 10:10 | RAD ---
CHEST 1 VIEW: Date: 02/06/2020 INDICATION: History of pneumonia. COMPARISON: Prior exam dated 02/04/2020. FINDINGS: Bilateral air space disease persists. Patient remains intubated with gastric catheter placement. No p neumothorax is evident. Osseous structures are unchanged. IMPRESSION: Stable exam. POS: BH
--- NOTE | 2020-02-06 10:48 | RAD ---
Exam: 1 view abdomen HISTORY: NG tube placement Comparison none FINDINGS: Nonspecific bowel gas pattern. IVC filter is noted Nasogastric tube is identified. Sidehole is at the GE junction. Advancement of nasogastric tube is re commended IMPRESSION: Nasogastric tube advancement is recommended. CODE T
--- NOTE | 2020-02-06 10:50 | RAD ---
Exam: Chest one view HISTORY:And known central line placement Comparison: 02/06/2020 at 3:00 AM FINDINGS: Cardiac silhouette:Upper normal cardiac silhouette. Aorta: Unremarkable Pulmonary vessels: Normal Costophrenic angles: Redemonstration of bilateral pleural effusions Lines and tubes: Redemonstration of nasogastric tube. Sidehole is at the GE junction. Advancement is recommended. Interval placement of a tracheostomy. There is a left-sided subclavian vascular catheter which is positioned to terminate over the region of the superior vena cava. LUNGS: Bibasilar opacities are once again noted. Correlate for aspiration, atelectasis and/or pneumon ia Pneumothorax: None Osseous abnormalities: None IMPRESSION: 1. Left-sided subclavian vascular catheter, likely terminating in the region superior vena cava. 2. Tracheostomy and nasogastric tube as described above. Advancement of nasogastric tube is recommend ed 3. Bibasilar pleural and parenchymal changes do remain. Continued surveillance is recommended.
[2020-02-06] MEDS: Saccharomyces boulardii 250 MG CAP PO SCH (11:20)
[2020-02-06] MEDS: Famotidine/PF 20 mg/2ml Vial SLOW IVP SCH ×2 (11:20→19:56)
[2020-02-06] MEDS: Thiamine 100 MG TAB PO SCH (11:20)
[2020-02-06] MEDS: Multivitamin W/ Minerals 1 TAB PO SCH (11:20)
[2020-02-06] MEDS: Folic Acid 1 MG TAB PO SCH (11:20)
[2020-02-06 12:36] LABS: Glucose 129 mg/dL (70-105)
[2020-02-06] MEDS: Silver Sulfadiazine 50 GM TUBE TOP SCH ×2 (15:25→19:56)
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
[2020-02-06] MEDS: D5 1/2 NS w/20 mEq KCL 1,000 ML IV SCH (17:20)
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
[2020-02-06] MEDS ORDERED: Piperacillin/Tazobactam 3.375 GM VIAL ONE (19:38)
[2020-02-06 23:51] LABS: Glucose 206 mg/dL (70-105)
[2020-02-07] MEDS: fentaNYL Citrate/PF 2,000 MCG in Sodium Chloride 0.9% 60 ML IV SCH ×2 (01:11→11:55)
[2020-02-07] MEDS: D5 1/2 NS w/20 mEq KCL 1,000 ML IV SCH ×4 (01:16→22:00)
[2020-02-07] MEDS: Piperacillin/Tazobactam 3.375 GM in Sodium Chloride 0.9% 100 ML IVPB SCH ×3 (01:16→13:36)
[2020-02-07 05:37] LABS: Anion Gap 10 mmol/L (10-20); BUN (Urea Nitrogen) 11 mg/dL (8.4-25.7); CK (CPK) 1760 U/L (30-200); Calc. Creatinine Clearance 162 mL/min (70-130); Calcium 7.8 mg/dL (7.8-10.44); Carbon Dioxide 31 mmol/L (22-29); Chloride 108 mmol/L (98-107); Glucose 183 mg/dL (70-105); Magnesium 2.3 mg/dL (1.6-2.6); Phosphorus 2.4 mg/dL (2.3-4.7); Potassium 3.8 mmol/L (3.5-5.1); Sodium 145 mmol/L (136-145)
[2020-02-07] MEDS: Acetaminophen 650 MG/20.3 ML UDCUP PO SCH ×3 (05:43→17:20)
[2020-02-07] MEDS: Oxazepam 10 MG CAP PO SCH ×3 (05:44→22:00)
[2020-02-07 06:28] LABS: Hemoglobin 6.9 g/dL (14.0-18.0); Mean Corpuscular HGB CONC 32.7 g/dL (32.0-36.0); Mean Corpuscular Hemoglobin 31.6 pg (27.0-31.0); Mean Corpuscular Volume 96.6 fL (78.0-98.0); Mean Platelet Volume 7.2 fL (7.4-10.4); Platelet Count 198 thou/uL (130-400); RBC Distribution Width 14.1 % (11.5-14.5); Red Blood Cell (RBC) Count 2.19 mill/uL (4.70-6.10); White Blood Cell (WBC) Count 5.8 thou/uL (4.8-10.8)
[2020-02-07 06:31] LABS: Band 21 % (5-11); Eosinophils 2 % (0-10); Lymphocytes 13 % (21-51); MDiff Complete? YES; Metamyelocyte 1 % (0-0); Monocytes 13 % (0-10); Neutrophil 50 % (42-75); Nucleated RBC 1 % (0)
[2020-02-07] MEDS ORDERED: Potassium Phosphate 30 MMOL in Sodium Chloride 0.9% 250 ML 250 ML IVPB SCH (09:00)
[2020-02-07] MEDS ORDERED: Ondansetron PF 4 MG/2 ML Vial ONE (09:13)
[2020-02-07] MEDS ORDERED: PHENYLEPHRINE-NS 100 MCG/ML 10 ML SYRINGE ONE (09:13)
[2020-02-07] MEDS ORDERED: Rocuronium Bromide 10 MG/ML (10ML VIAL) ONE (09:13)
[2020-02-07 10:03] LABS: INR-International Normal Ratio 1.1; PTT 38.7 sec (22.9-36.1); Prothrombin Time 14.3 sec (12.0-14.7)
--- NOTE | 2020-02-07 10:46 | RAD ---
Exam: Chest one view HISTORY:Central line placement. Intubated patient. Pneumonia follow-up. Comparison: 02/06/2020 FINDINGS: Cardiac silhouette:Enlarged, likely due to portable technique Aorta: Unremarkable Pulmonary vessels: Normal Costophrenic angles: Clear LUNGS: Stable multifocal interstitial and alveolar opacities. Lines and tubes: Redemonstration of endotracheal tube, left-sided subclavian vascular catheter and na sogastric tube. Pneumothorax: None Osseous abnormalities: None IMPRESSION: No significant interval change.
[2020-02-07] MEDS: Famotidine/PF 20 mg/2ml Vial SLOW IVP SCH ×2 (12:17→20:40)
[2020-02-07] MEDS: Ascorbic Acid 500 mg Chewable Tablet PO SCH ×2 (12:18→20:40)
[2020-02-07] MEDS: Folic Acid 1 MG TAB PO SCH (12:18)
[2020-02-07] MEDS: Saccharomyces boulardii 250 MG CAP PO SCH (12:18)
[2020-02-07] MEDS: Multivitamin W/ Minerals 1 TAB PO SCH (12:18)
[2020-02-07] MEDS: Ferrous Sulfate 325 MG TAB PO SCH ×2 (12:18→20:40)
[2020-02-07] MEDS: Thiamine 100 MG TAB PO SCH (12:18)
[2020-02-07] MEDS ORDERED: Fentanyl 100 MCG/2 ML VIAL ONE (13:24)
[2020-02-07] MEDS ORDERED: Midazolam HCl 2 mg/2 ml Vial ONE (13:24)
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
[2020-02-07] MEDS: Furosemide 20 MG/2 ML VIAL SLOW IVP SCH ×2 (13:36→22:00)
[2020-02-07] MEDS: Silver Sulfadiazine 50 GM TUBE TOP SCH ×2 (14:43→20:41)
[2020-02-07] MEDS ORDERED: HYDROmorphone 2 MG/ML VIAL ONE (15:04)
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
[2020-02-07] MEDS: Propofol 1,000 MG/100 ML VIAL IV PRN ×2 (17:13→22:10)
[2020-02-07] MEDS: cefTRIAXone\\ROCEPHIN 2 GM in Sodium Chloride 0.9% 100 ML IVPB SCH (17:20)
--- NOTE | 2020-02-07 18:35 | RAD ---
LEFT ELBOW TWO VIEW: 02/07/20 HISTORY: ORIF. COMPARISON: Elbow radiograph 10/02/19. FINDINGS: There is satisfactory postoperative appearance of the lateral plate and screw and medial claw plate a nd screw fixation of the supracondylar fracture. IMPRESSION: Satisfactory postoperative appearance. POS: HOME
[2020-02-08] MEDS: Acetaminophen 650 MG/20.3 ML UDCUP PO SCH ×4 (00:05→18:07)
[2020-02-08] MEDS: fentaNYL Citrate/PF 2,000 MCG in Sodium Chloride 0.9% 60 ML IV SCH ×2 (00:28→13:05)
[2020-02-08] MEDS: D5 1/2 NS w/20 mEq KCL 1,000 ML IV SCH ×4 (02:30→18:16)
[2020-02-08] MEDS: Propofol 1,000 MG/100 ML VIAL IV PRN (03:11)
[2020-02-08 05:12] LABS: Hemoglobin 9.5 g/dL (14.0-18.0); Mean Corpuscular HGB CONC 33.3 g/dL (32.0-36.0); Mean Corpuscular Hemoglobin 31.6 pg (27.0-31.0); Mean Corpuscular Volume 94.9 fL (78.0-98.0); Mean Platelet Volume 7.5 fL (7.4-10.4); Platelet Count 246 thou/uL (130-400); RBC Distribution Width 13.7 % (11.5-14.5); Red Blood Cell (RBC) Count 3.01 mill/uL (4.70-6.10); White Blood Cell (WBC) Count 7.8 thou/uL (4.8-10.8)
[2020-02-08 05:13] LABS: Anion Gap 9 mmol/L (10-20); BUN (Urea Nitrogen) 10 mg/dL (8.4-25.7); Band 2 % (5-11); CK (CPK) 1367 U/L (30-200); Calc. Creatinine Clearance 166 mL/min (70-130); Calcium 7.8 mg/dL (7.8-10.44); Carbon Dioxide 31 mmol/L (22-29); Chloride 106 mmol/L (98-107); Glucose 179 mg/dL (70-105); Lymphocytes 7 % (21-51); MDiff Complete? YES; Magnesium 2.1 mg/dL (1.6-2.6); Monocytes 13 % (0-10); Myelocyte 1 % (0-0); Neutrophil 77 % (42-75); Phosphorus 2.3 mg/dL (2.3-4.7); Potassium 3.9 mmol/L (3.5-5.1); Sodium 142 mmol/L (136-145)
[2020-02-08] MEDS: Oxazepam 10 MG CAP PO SCH ×3 (05:55→21:58)
[2020-02-08] MEDS: Furosemide 20 MG/2 ML VIAL SLOW IVP SCH ×3 (05:55→21:58)
[2020-02-08] MEDS: Insulin Regular 300 UNITS/3 ML VIAL SC PRN ×2 (06:27→19:01)
[2020-02-08] MEDS ORDERED: Amlodipine 10 MG TAB PO SCH (09:00)
[2020-02-08] MEDS ORDERED: Furosemide 40 MG/4 ML VIAL SLOW IVP SCH (09:30)
[2020-02-08] MEDS ORDERED: Metolazone 2.5 MG TAB PO ONE (09:31)
[2020-02-08] MEDS: Famotidine/PF 20 mg/2ml Vial SLOW IVP SCH ×2 (10:13→20:35)
[2020-02-08] MEDS: Saccharomyces boulardii 250 MG CAP PO SCH (10:14)
[2020-02-08] MEDS: Ascorbic Acid 500 mg Chewable Tablet PO SCH ×2 (10:14→20:35)
[2020-02-08] MEDS: Senokot S 8.6-50 MG TAB PO SCH ×2 (10:14→20:35)
[2020-02-08] MEDS: Multivitamin W/ Minerals 1 TAB PO SCH (10:14)
[2020-02-08] MEDS: Polyethylene Glycol 3350 17 GM Packet PO SCH (10:15)
[2020-02-08] MEDS: Folic Acid 1 MG TAB PO SCH (10:15)
[2020-02-08] MEDS: Ferrous Sulfate 325 MG TAB PO SCH ×2 (10:15→20:35)
[2020-02-08] MEDS: Thiamine 100 MG TAB PO SCH (10:15)
[2020-02-08] MEDS: Silver Sulfadiazine 50 GM TUBE TOP SCH ×2 (10:16→20:36)
[2020-02-08] MEDS ORDERED: Metoprolol Tartrate 5 MG/5 ML VIAL IVP SCH (13:00)
[2020-02-08] MEDS: cefTRIAXone\\ROCEPHIN 2 GM in Sodium Chloride 0.9% 100 ML IVPB SCH (13:30)
[2020-02-08] MEDS: Metoprolol Tartrate 25 MG TAB PO SCH ×2 (13:30→18:07)
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
[2020-02-08] MEDS ORDERED: cloNIDine 0.1 MG TAB PO SCH (22:30)
[2020-02-09] MEDS: Ibuprofen 200 MG TAB PO SCH ×5 (00:14→23:59)
[2020-02-09] MEDS: Acetaminophen 650 MG/20.3 ML UDCUP PO SCH ×4 (00:14→17:55)
[2020-02-09] MEDS: D5 1/2 NS w/20 mEq KCL 1,000 ML IV SCH ×2 (00:15→07:47)
[2020-02-09] MEDS: Metoprolol Tartrate 25 MG TAB PO SCH ×4 (00:15→20:02)
[2020-02-09] MEDS: Insulin Regular 300 UNITS/3 ML VIAL SC PRN ×4 (00:15→18:01)
[2020-02-09] MEDS: Propofol 1,000 MG/100 ML VIAL IV PRN ×2 (01:29→07:47)
[2020-02-09 03:32] LABS: #Lymphocytes 0.7 thou/uL (1.20-3.40); #Monocytes 1.4 thou/uL (0.11-0.59); #Neutrophils 7.4 thou/uL (1.40-6.50); %Basophils 0.1 % (0.0-1.0); %Eosinophils 0.4 % (0.0-10.0); %Lymphocytes 7.6 % (21.0-51.0); %Monocytes 14.2 % (0.0-10.0); %Neutrophils 77.6 % (42.0-75.0); Hemoglobin 9.9 g/dL (14.0-18.0); Mean Corpuscular HGB CONC 33.8 g/dL (32.0-36.0); Mean Corpuscular Hemoglobin 31.8 pg (27.0-31.0); Mean Corpuscular Volume 94.3 fL (78.0-98.0); Mean Platelet Volume 7.4 fL (7.4-10.4); Platelet Count 327 thou/uL (130-400); RBC Distribution Width 13.5 % (11.5-14.5); Red Blood Cell (RBC) Count 3.12 mill/uL (4.70-6.10); White Blood Cell (WBC) Count 9.5 thou/uL (4.8-10.8)
[2020-02-09] MEDS: Furosemide 20 MG/2 ML VIAL SLOW IVP SCH ×2 (03:40→10:58)
[2020-02-09 03:56] LABS: Anion Gap 10 mmol/L (10-20); BUN (Urea Nitrogen) 16 mg/dL (8.4-25.7); Calc. Creatinine Clearance 136 mL/min (70-130); Calcium 8.3 mg/dL (7.8-10.44); Carbon Dioxide 32 mmol/L (22-29); Chloride 99 mmol/L (98-107); Glucose 224 mg/dL (70-105); Magnesium 2.1 mg/dL (1.6-2.6); Potassium 3.4 mmol/L (3.5-5.1); Sodium 138 mmol/L (136-145)
[2020-02-09] MEDS ORDERED: Potassium Phosphate 30 MMOL in Sodium Chloride 0.9% 250 ML 250 ML IVPB SCH (05:30)
[2020-02-09] MEDS: Oxazepam 10 MG CAP PO SCH ×3 (06:13→20:02)
[2020-02-09] MEDS: Ascorbic Acid 500 mg Chewable Tablet PO SCH ×2 (08:29→20:02)
[2020-02-09] MEDS: Senokot S 8.6-50 MG TAB PO SCH ×2 (08:29→20:01)
[2020-02-09] MEDS: Lisinopril 20 MG TAB PO SCH (08:30)
[2020-02-09] MEDS: Folic Acid 1 MG TAB PO SCH (08:30)
[2020-02-09] MEDS: Saccharomyces boulardii 250 MG CAP PO SCH (08:30)
[2020-02-09] MEDS: Multivitamin W/ Minerals 1 TAB PO SCH (08:31)
[2020-02-09] MEDS: Thiamine 100 MG TAB PO SCH (08:31)
[2020-02-09] MEDS: Polyethylene Glycol 3350 17 GM Packet PO SCH (08:31)
[2020-02-09] MEDS: Ferrous Sulfate 325 MG TAB PO SCH ×2 (08:31→20:01)
[2020-02-09] MEDS: Famotidine/PF 20 mg/2ml Vial SLOW IVP SCH ×2 (08:31→20:01)
[2020-02-09] MEDS: Silver Sulfadiazine 50 GM TUBE TOP SCH ×2 (08:47→20:03)
[2020-02-09] MEDS: fentaNYL Citrate/PF 2,000 MCG in Sodium Chloride 0.9% 60 ML IV SCH (08:53)
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
[2020-02-09] MEDS: cefTRIAXone\\ROCEPHIN 2 GM in Sodium Chloride 0.9% 100 ML IVPB SCH (14:27)
[2020-02-09] MEDS: cloNIDine 0.1 MG TAB PO SCH (17:57)
[2020-02-10] MEDS: Metoprolol Tartrate 25 MG TAB PO SCH ×4 (00:33→21:15)
[2020-02-10] MEDS: fentaNYL Citrate/PF 2,000 MCG in Sodium Chloride 0.9% 60 ML IV SCH ×2 (03:00→17:20)
[2020-02-10 04:41] LABS: Lactic Acid 1.3 mmol/L (0.5-2.2)
[2020-02-10 04:51] LABS: Anion Gap 12 mmol/L (10-20); BUN (Urea Nitrogen) 25 mg/dL (8.4-25.7); CK (CPK) 1388 U/L (30-200); Calc. Creatinine Clearance 128 mL/min (70-130); Calcium 8.3 mg/dL (7.8-10.44); Carbon Dioxide 32 mmol/L (22-29); Chloride 99 mmol/L (98-107); Glucose 212 mg/dL (70-105); Magnesium 2.4 mg/dL (1.6-2.6); Phosphorus 3.4 mg/dL (2.3-4.7); Potassium 3.4 mmol/L (3.5-5.1); Sodium 140 mmol/L (136-145)
[2020-02-10 05:06] LABS: Band 16 % (5-11); Hemoglobin 10.3 g/dL (14.0-18.0); Lymphocytes 7 % (21-51); MDiff Complete? YES; Mean Corpuscular HGB CONC 32.7 g/dL (32.0-36.0); Mean Corpuscular Hemoglobin 31.4 pg (27.0-31.0); Mean Corpuscular Volume 96.1 fL (78.0-98.0); Mean Platelet Volume 7.6 fL (7.4-10.4); Monocytes 4 % (0-10); Neutrophil 73 % (42-75); Platelet Count 442 thou/uL (130-400); RBC Distribution Width 13.5 % (11.5-14.5); Red Blood Cell (RBC) Count 3.28 mill/uL (4.70-6.10)
[2020-02-10] MEDS: Ibuprofen 200 MG TAB PO SCH ×3 (05:16→16:50)
[2020-02-10] MEDS: Acetaminophen 650 MG/20.3 ML UDCUP PO SCH ×4 (05:16→16:48)
[2020-02-10] MEDS: Insulin Regular 300 UNITS/3 ML VIAL SC PRN ×4 (05:17→17:33)
[2020-02-10] MEDS: cloNIDine 0.1 MG TAB PO SCH ×4 (05:28→16:50)
[2020-02-10] MEDS: Ascorbic Acid 500 mg Chewable Tablet PO SCH ×2 (08:04→21:14)
[2020-02-10] MEDS: Polyethylene Glycol 3350 17 GM Packet PO SCH (08:04)
[2020-02-10] MEDS: Senokot S 8.6-50 MG TAB PO SCH ×2 (08:04→21:14)
[2020-02-10] MEDS: Multivitamin W/ Minerals 1 TAB PO SCH (08:05)
[2020-02-10] MEDS: Folic Acid 1 MG TAB PO SCH (08:05)
[2020-02-10] MEDS: Oxazepam 10 MG CAP PO SCH ×2 (08:05→21:14)
[2020-02-10] MEDS: Lisinopril 20 MG TAB PO SCH (08:05)
[2020-02-10] MEDS: Saccharomyces boulardii 250 MG CAP PO SCH (08:05)
[2020-02-10] MEDS: Ferrous Sulfate 325 MG TAB PO SCH ×2 (08:05→21:15)
[2020-02-10] MEDS: Thiamine 100 MG TAB PO SCH (08:05)
[2020-02-10] MEDS: Famotidine/PF 20 mg/2ml Vial SLOW IVP SCH ×2 (08:06→21:15)
[2020-02-10] MEDS: Insulin Glargine 5 UNITS in Pre-Filled Syringe 1 EACH SC SCH ×2 (08:21→21:16)
[2020-02-10] MEDS ORDERED: Potassium Chloride 40 MEQ in Sodium Chloride 0.9% 250 ML 250 ML IVPB SCH (09:00)
--- NOTE | 2020-02-10 09:06 | RAD ---
CHEST 1 VIEW: Date: 02/10/2020 INDICATION: History of respiratory failure. COMPARISON: Prior exam dated 02/07/2020. FINDINGS: Bilateral air space disease persists. Patient has tracheostomy tube, gastric catheter, and left subcl lizeth central venous catheter that is unchanged. No pneumothorax is evident. IMPRESSION: 1. Stable bilateral pneumonia. 2. Tubes and lines as above. 3. No pneumothorax. POS: BH
[2020-02-10] MEDS: Silver Sulfadiazine 50 GM TUBE TOP SCH ×2 (09:23→21:16)
[2020-02-10] MEDS ORDERED: Furosemide 20 MG/2 ML VIAL SLOW IVP SCH (12:30)
[2020-02-10] MEDS: cefTRIAXone\\ROCEPHIN 2 GM in Sodium Chloride 0.9% 100 ML IVPB SCH (13:25)
[2020-02-10] MEDS: traMADol HCl 50 MG TAB PO SCH ×3 (13:25→21:15)
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
[2020-02-11] MEDS: Acetaminophen 650 MG/20.3 ML UDCUP PO SCH ×4 (00:22→16:47)
[2020-02-11] MEDS: Ibuprofen 200 MG TAB PO SCH ×4 (00:22→16:48)
[2020-02-11] MEDS: Insulin Regular 300 UNITS/3 ML VIAL SC PRN ×4 (00:23→17:06)
[2020-02-11] MEDS: traMADol HCl 50 MG TAB PO SCH ×6 (00:23→21:43)
[2020-02-11] MEDS: cloNIDine 0.1 MG TAB PO SCH ×4 (00:23→16:48)
[2020-02-11] MEDS: Metoprolol Tartrate 25 MG TAB PO SCH ×4 (00:33→20:25)
[2020-02-11 05:49] LABS: #Eosinphils 0.1 thou/uL (0.0-0.7); #Lymphocytes 0.9 thou/uL (1.20-3.40); #Monocytes 0.9 thou/uL (0.11-0.59); #Neutrophils 9.3 thou/uL (1.40-6.50); %Basophils 0.3 % (0.0-1.0); %Eosinophils 0.9 % (0.0-10.0); %Lymphocytes 7.7 % (21.0-51.0); %Monocytes 8.2 % (0.0-10.0); %Neutrophils 82.9 % (42.0-75.0); Hemoglobin 9.7 g/dL (14.0-18.0); Mean Corpuscular HGB CONC 31.8 g/dL (32.0-36.0); Mean Corpuscular Hemoglobin 30.8 pg (27.0-31.0); Mean Corpuscular Volume 96.7 fL (78.0-98.0); Mean Platelet Volume 7.4 fL (7.4-10.4); Platelet Count 534 thou/uL (130-400); RBC Distribution Width 13.6 % (11.5-14.5); Red Blood Cell (RBC) Count 3.16 mill/uL (4.70-6.10); White Blood Cell (WBC) Count 11.2 thou/uL (4.8-10.8)
[2020-02-11 06:14] LABS: Anion Gap 12 mmol/L (10-20); BUN (Urea Nitrogen) 36 mg/dL (8.4-25.7); Calc. Creatinine Clearance 122 mL/min (70-130); Calcium 8.5 mg/dL (7.8-10.44); Carbon Dioxide 32 mmol/L (22-29); Chloride 102 mmol/L (98-107); Glucose 246 mg/dL (70-105); Magnesium 2.6 mg/dL (1.6-2.6); Phosphorus 3.1 mg/dL (2.3-4.7); Potassium 3.4 mmol/L (3.5-5.1); Sodium 143 mmol/L (136-145)
[2020-02-11] MEDS ORDERED: Potassium Chloride 20 MEQ TAB PO SCH (07:00)
[2020-02-11] MEDS: Oxazepam 10 MG CAP PO SCH ×2 (08:48→21:42)
[2020-02-11] MEDS: Lisinopril 20 MG TAB PO SCH (08:48)
[2020-02-11] MEDS: Saccharomyces boulardii 250 MG CAP PO SCH (08:48)
[2020-02-11] MEDS: Aspirin 81 mg Enteric Coated Tablet PO SCH ×2 (08:48→21:41)
[2020-02-11] MEDS: Senokot S 8.6-50 MG TAB PO SCH ×2 (08:49→21:43)
[2020-02-11] MEDS: Famotidine/PF 20 mg/2ml Vial SLOW IVP SCH ×2 (08:49→21:42)
[2020-02-11] MEDS: Insulin Glargine 5 UNITS in Pre-Filled Syringe 1 EACH SC SCH ×2 (08:49→21:42)
[2020-02-11] MEDS: Ascorbic Acid 500 mg Chewable Tablet PO SCH ×2 (08:49→21:41)
[2020-02-11] MEDS: Thiamine 100 MG TAB PO SCH (08:50)
[2020-02-11] MEDS: Atorvastatin Calcium 20 MG TAB PO SCH (08:50)
[2020-02-11] MEDS: Folic Acid 1 MG TAB PO SCH (08:50)
[2020-02-11] MEDS: Ferrous Sulfate 325 MG TAB PO SCH ×2 (08:50→21:42)
[2020-02-11] MEDS: Polyethylene Glycol 3350 17 GM Packet PO SCH (08:50)
[2020-02-11] MEDS: Amlodipine 5 MG TAB PO SCH (08:50)
[2020-02-11] MEDS: Multivitamin W/ Minerals 1 TAB PO SCH (08:50)
[2020-02-11] MEDS: Silver Sulfadiazine 50 GM TUBE TOP SCH ×2 (08:55→21:44)
[2020-02-11] MEDS ORDERED: Lisinopril 10 MG TAB PO SCH (09:00)
--- NOTE | 2020-02-11 09:19 | RAD ---
CHEST ONE VIEW: INDICATIONS: Cardiac arrest. COMPARISON: 02/10/2020 FINDINGS: The patient's tracheostomy tube, gastric catheter and left IJ central venous catheter appear unchange d. Cardiomegaly and pulmonary vascular congestion persist. Central edema pattern is mildly improved. Very tiny pleural effusions are present. No pneumothorax is evident. IMPRESSION: Improving central edema pattern. POS: BH
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
[2020-02-11] MEDS: fentaNYL Citrate/PF 2,000 MCG in Sodium Chloride 0.9% 60 ML IV SCH (11:53)
[2020-02-11] MEDS: cefTRIAXone\\ROCEPHIN 2 GM in Sodium Chloride 0.9% 100 ML IVPB SCH (13:03)
[2020-02-11] MEDS ORDERED: Albuterol Sulfate 2.5 mg/3 ml Neb ONE (13:16)
[2020-02-11] MEDS ORDERED: Midazolam HCl 2 mg/2 ml Vial ONE (13:16)
[2020-02-11] MEDS ORDERED: Enoxaparin Sodium 40 MG/0.4 ML SYRINGE SC SCH (21:00)
[2020-02-11] MEDS ORDERED: Enoxaparin Sodium 30 MG/0.3 ML SYRINGE SC SCH (21:00)
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
[2020-02-12] MEDS: Metoprolol Tartrate 25 MG TAB PO SCH ×4 (00:17→19:10)
[2020-02-12] MEDS: Acetaminophen 650 MG/20.3 ML UDCUP PO SCH ×4 (00:21→16:48)
[2020-02-12] MEDS: cloNIDine 0.1 MG TAB PO SCH ×4 (00:22→16:48)
[2020-02-12] MEDS: traMADol HCl 50 MG TAB PO SCH ×4 (00:23→12:12)
[2020-02-12] MEDS: Ibuprofen 200 MG TAB PO SCH ×4 (00:23→16:49)
[2020-02-12] MEDS: Insulin Regular 300 UNITS/3 ML VIAL SC PRN ×3 (00:28→12:34)
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
[2020-02-12] MEDS: Senokot S 8.6-50 MG TAB PO SCH ×2 (09:03→20:32)
[2020-02-12] MEDS: Atorvastatin Calcium 20 MG TAB PO SCH (09:03)
[2020-02-12] MEDS: Enoxaparin Sodium 30 MG/0.3 ML SYRINGE SC SCH ×2 (09:03→20:30)
[2020-02-12] MEDS: Famotidine/PF 20 mg/2ml Vial SLOW IVP SCH ×2 (09:03→20:30)
[2020-02-12] MEDS: Ascorbic Acid 500 mg Chewable Tablet PO SCH ×2 (09:03→20:29)
[2020-02-12] MEDS: Insulin Glargine 5 UNITS in Pre-Filled Syringe 1 EACH SC SCH ×2 (09:03→19:25)
[2020-02-12] MEDS: Thiamine 100 MG TAB PO SCH (09:04)
[2020-02-12] MEDS: Oxazepam 10 MG CAP PO SCH ×2 (09:04→20:32)
[2020-02-12] MEDS: Ferrous Sulfate 325 MG TAB PO SCH ×2 (09:04→20:30)
[2020-02-12] MEDS: Polyethylene Glycol 3350 17 GM Packet PO SCH (09:04)
[2020-02-12] MEDS: Folic Acid 1 MG TAB PO SCH (09:05)
[2020-02-12] MEDS: Saccharomyces boulardii 250 MG CAP PO SCH (09:05)
[2020-02-12] MEDS: Multivitamin W/ Minerals 1 TAB PO SCH (09:06)
[2020-02-12] MEDS: Amlodipine 5 MG TAB PO SCH (09:06)
[2020-02-12] MEDS: Micafungin 100 MG in Sodium Chloride 0.9% 100 ML IVPB SCH (09:06)
[2020-02-12] MEDS: Lisinopril 20 MG TAB PO SCH (09:06)
[2020-02-12] MEDS: Silver Sulfadiazine 50 GM TUBE TOP SCH ×2 (10:14→20:33)
[2020-02-12] MEDS ORDERED: Morphine 2 MG/ML VIAL SLOW IVP PRN (15:32)
[2020-02-12] MEDS ORDERED: HYDROcodone/Acetaminophen 10/325 mg Tablet PO PRN (15:34)
[2020-02-12] MEDS ORDERED: Fentanyl 100 MCG/2 ML VIAL ONE (15:55)
[2020-02-12] MEDS: Morphine 4 MG/ML VIAL SLOW IVP PRN (16:00)
[2020-02-12] MEDS ORDERED: Fentanyl 100 MCG/2 ML VIAL SLOW IVP SCH (16:00)
[2020-02-12] MEDS: cefTRIAXone\\ROCEPHIN 2 GM in Sodium Chloride 0.9% 100 ML IVPB SCH (16:27)
[2020-02-12] MEDS: HYDROcodone/Acetaminophen 10/325 mg Tablet PO SCH ×2 (16:48→20:30)
--- NOTE | 2020-02-12 17:42 | RAD ---
Radiograph abdomen one view: 02/12/2020 5:24 PM HISTORY: 59-year-old male with abdominal pain. COMPARISON: 02/06/2020 FINDINGS: There is a new finding of multiple air-filled dilated small bowel loops located centrally in the abdo men. Again noted is the nondistended air-filled loop of transverse colon. Again noted is the IVC filter. IMPRESSION: 1.) Abnormal bowel gas pattern: Early or partial small bowel obstruction versus ileus. 2) recommend follow-up
[2020-02-12 17:55] LABS: ALT (SGPT) 33 U/L (8-55); AST (SGOT) 49 U/L (5-34); Albumin 2.6 g/dL (3.5-5.0); Alkaline Phosphatase 118 U/L (40-110); Anion Gap 13 mmol/L (10-20); BUN (Urea Nitrogen) 41 mg/dL (8.4-25.7); Bilirubin, Total 2.5 mg/dL (0.2-1.2); Calc. Creatinine Clearance 103 mL/min (70-130); Calcium 8.4 mg/dL (7.8-10.44); Carbon Dioxide 31 mmol/L (22-29); Chloride 106 mmol/L (98-107); Globulin 3.6 g/dL (2.4-3.5); Glucose 166 mg/dL (70-105); Potassium 3.7 mmol/L (3.5-5.1); Protein, Total 6.2 g/dL (6.0-8.3); Sodium 146 mmol/L (136-145)
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
[2020-02-12] MEDS: Propofol 1,000 MG/100 ML VIAL IV PRN (18:49)
[2020-02-13] MEDS: HYDROcodone/Acetaminophen 10/325 mg Tablet PO SCH ×6 (00:13→20:20)
[2020-02-13] MEDS: Metoclopramide HCl 10 MG TAB PO SCH ×3 (00:14→16:03)
[2020-02-13] MEDS: Ibuprofen 200 MG TAB PO SCH ×4 (00:14→18:57)
[2020-02-13] MEDS: Acetaminophen 650 MG/20.3 ML UDCUP PO SCH ×4 (00:14→18:56)
[2020-02-13] MEDS: Propofol 1,000 MG/100 ML VIAL IV PRN ×2 (00:15→05:15)
[2020-02-13] MEDS: cloNIDine 0.1 MG TAB PO SCH ×4 (00:17→18:56)
[2020-02-13] MEDS: Morphine 4 MG/ML VIAL SLOW IVP PRN ×2 (00:30→21:18)
[2020-02-13] MEDS: Metoprolol Tartrate 25 MG TAB PO SCH ×4 (01:05→19:38)
[2020-02-13 04:49] LABS: #Basophils 0.1 thou/uL (0.0-0.2); #Eosinphils 0.1 thou/uL (0.0-0.7); #Neutrophils 12.1 thou/uL (1.40-6.50); %Basophils 0.4 % (0.0-1.0); %Eosinophils 0.8 % (0.0-10.0); %Lymphocytes 7.1 % (21.0-51.0); %Monocytes 7.2 % (0.0-10.0); %Neutrophils 84.5 % (42.0-75.0); Hemoglobin 8.7 g/dL (14.0-18.0); Mean Corpuscular HGB CONC 32.6 g/dL (32.0-36.0); Mean Corpuscular Hemoglobin 31.2 pg (27.0-31.0); Mean Corpuscular Volume 95.7 fL (78.0-98.0); Mean Platelet Volume 7.5 fL (7.4-10.4); Platelet Count 634 thou/uL (130-400); RBC Distribution Width 13.7 % (11.5-14.5); Red Blood Cell (RBC) Count 2.79 mill/uL (4.70-6.10); White Blood Cell (WBC) Count 14.4 thou/uL (4.8-10.8)
[2020-02-13 05:46] LABS: Anion Gap 14 mmol/L (10-20); BUN (Urea Nitrogen) 44 mg/dL (8.4-25.7); Calc. Creatinine Clearance 87 mL/min (70-130); Calcium 8.5 mg/dL (7.8-10.44); Carbon Dioxide 30 mmol/L (22-29); Chloride 106 mmol/L (98-107); Glucose 153 mg/dL (70-105); Phosphorus 4.3 mg/dL (2.3-4.7); Potassium 3.5 mmol/L (3.5-5.1); Sodium 146 mmol/L (136-145)
[2020-02-13] MEDS ORDERED: Potassium Chloride 40 MEQ in Sodium Chloride 0.9% 250 ML 250 ML IVPB SCH (08:45)
[2020-02-13] MEDS: Amlodipine 5 MG TAB PO SCH (09:17)
[2020-02-13] MEDS: Aspirin 325 MG TAB PO SCH (09:18)
[2020-02-13] MEDS: Famotidine/PF 20 mg/2ml Vial SLOW IVP SCH ×2 (09:18→20:20)
[2020-02-13] MEDS: Ferrous Sulfate 325 MG TAB PO SCH ×2 (09:18→20:20)
[2020-02-13] MEDS: Atorvastatin Calcium 20 MG TAB PO SCH (09:18)
[2020-02-13] MEDS: Enoxaparin Sodium 30 MG/0.3 ML SYRINGE SC SCH ×2 (09:18→20:20)
[2020-02-13] MEDS: Ascorbic Acid 500 mg Chewable Tablet PO SCH ×2 (09:18→20:20)
[2020-02-13] MEDS: Thiamine 100 MG TAB PO SCH (09:19)
[2020-02-13] MEDS: Multivitamin W/ Minerals 1 TAB PO SCH (09:20)
[2020-02-13] MEDS: Insulin Glargine 5 UNITS in Pre-Filled Syringe 1 EACH SC SCH ×2 (09:20→20:20)
[2020-02-13] MEDS: Oxazepam 10 MG CAP PO SCH ×2 (09:21→20:20)
[2020-02-13] MEDS: Polyethylene Glycol 3350 17 GM Packet PO SCH (09:21)
[2020-02-13] MEDS: Saccharomyces boulardii 250 MG CAP PO SCH (09:21)
[2020-02-13] MEDS: Micafungin 100 MG in Sodium Chloride 0.9% 100 ML IVPB SCH (09:21)
[2020-02-13] MEDS: Senokot S 8.6-50 MG TAB PO SCH ×2 (09:22→20:20)
[2020-02-13] MEDS: Silver Sulfadiazine 50 GM TUBE TOP SCH ×2 (09:22→19:55)
[2020-02-13] MEDS: Folic Acid 1 MG TAB PO SCH (09:40)
[2020-02-13] MEDS: Lisinopril 20 MG TAB PO SCH (09:40)
--- NOTE | 2020-02-13 09:42 | RAD ---
CHEST 1 VIEW: COMPARISON: 02/10/2015. HISTORY: Cardiac arrest. FINDINGS: Stable tracheostomy, left-sided subclavian vascular catheter and nasogastric tube. Persistent cardio megaly. Scattered interstitial and alveolar opacities. The degree of opacification has not changed. Lung volumes continue to be diminished. No pneumothorax or acute osseous abnormalities. IMPRESSION: No significant interval change. POS: AH
[2020-02-13] MEDS ORDERED: Folic Acid 1 MG TAB PO SCH (09:45)
[2020-02-13] MEDS ORDERED: Lisinopril 20 MG TAB PO SCH (09:45)
[2020-02-13] MEDS: cefTRIAXone\\ROCEPHIN 2 GM in Sodium Chloride 0.9% 100 ML IVPB SCH (13:05)
[2020-02-13] MEDS: Insulin Regular 300 UNITS/3 ML VIAL SC PRN ×2 (13:31→18:58)
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
[2020-02-13 23:48] LABS: #Lymphocytes 0.7 thou/uL (1.20-3.40); #Monocytes 1.2 thou/uL (0.11-0.59); #Neutrophils 15.1 thou/uL (1.40-6.50); %Basophils 0.2 % (0.0-1.0); %Eosinophils 0.3 % (0.0-10.0); %Lymphocytes 4.2 % (21.0-51.0); %Monocytes 7.2 % (0.0-10.0); %Neutrophils 88.2 % (42.0-75.0); Hemoglobin 9.8 g/dL (14.0-18.0); Mean Corpuscular HGB CONC 32.9 g/dL (32.0-36.0); Mean Corpuscular Hemoglobin 31.5 pg (27.0-31.0); Mean Corpuscular Volume 95.7 fL (78.0-98.0); Mean Platelet Volume 7.1 fL (7.4-10.4); Platelet Count 773 thou/uL (130-400); RBC Distribution Width 13.6 % (11.5-14.5); Red Blood Cell (RBC) Count 3.11 mill/uL (4.70-6.10); White Blood Cell (WBC) Count 17.1 thou/uL (4.8-10.8)
[2020-02-13 23:58] LABS: Anion Gap 16 mmol/L (10-20); BUN (Urea Nitrogen) 30 mg/dL (8.4-25.7); Calc. Creatinine Clearance 118 mL/min (70-130); Calcium 7.9 mg/dL (7.8-10.44); Carbon Dioxide 28 mmol/L (22-29); Chloride 108 mmol/L (98-107); Glucose 139 mg/dL (70-105); Magnesium 2.8 mg/dL (1.6-2.6); Phosphorus 3.9 mg/dL (2.3-4.7); Potassium 4.2 mmol/L (3.5-5.1); Sodium 148 mmol/L (136-145)
[2020-02-14 00:03] LABS: Troponin I 0.021 ng/mL (< 0.028)
[2020-02-14 00:05] LABS: Lactic Acid 1.1 mmol/L (0.5-2.2)
--- NOTE | 2020-02-14 00:22 | RAD ---
RADIOGRAPH CHEST 1 VIEW: DATE: 02/13/2020 TIME: 11:36 PM HISTORY: 59-year-old male with dyspnea. Respiratory failure. COMPARISON: 02/13/2020 9:08 AM FINDINGS: Tracheostomy tube remains. Tracheostomy tube, left subclavian central vascular catheter, and esophagogastric tube remain. The patchy left central and inferior alveolar infiltrates remain. No consolidation in right lung. No pneumothorax. No interval change.. IMPRESSION: No interval change.
[2020-02-14] MEDS: Acetaminophen 650 MG/20.3 ML UDCUP PO SCH ×4 (00:24→18:08)
[2020-02-14] MEDS: HYDROcodone/Acetaminophen 10/325 mg Tablet PO SCH ×6 (00:24→20:43)
[2020-02-14] MEDS: Metoclopramide HCl 10 MG TAB PO SCH ×2 (00:25→08:11)
[2020-02-14] MEDS: cloNIDine 0.1 MG TAB PO SCH ×4 (00:25→18:07)
[2020-02-14] MEDS: Metoprolol Tartrate 25 MG TAB PO SCH ×4 (00:50→18:07)
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
[2020-02-14 06:06] LABS: #Lymphocytes 0.8 thou/uL (1.20-3.40); #Monocytes 1.2 thou/uL (0.11-0.59); #Neutrophils 14.6 thou/uL (1.40-6.50); %Basophils 0.1 % (0.0-1.0); %Eosinophils 0.2 % (0.0-10.0); %Lymphocytes 4.8 % (21.0-51.0); %Monocytes 6.9 % (0.0-10.0); Hemoglobin 9.3 g/dL (14.0-18.0); Mean Corpuscular HGB CONC 31.8 g/dL (32.0-36.0); Mean Corpuscular Hemoglobin 30.2 pg (27.0-31.0); Mean Corpuscular Volume 95.2 fL (78.0-98.0); Mean Platelet Volume 7.4 fL (7.4-10.4); Platelet Count 789 thou/uL (130-400); RBC Distribution Width 13.6 % (11.5-14.5); Red Blood Cell (RBC) Count 3.09 mill/uL (4.70-6.10); White Blood Cell (WBC) Count 16.6 thou/uL (4.8-10.8)
[2020-02-14 06:30] LABS: Anion Gap 14 mmol/L (10-20); BUN (Urea Nitrogen) 31 mg/dL (8.4-25.7); Calc. Creatinine Clearance 123 mL/min (70-130); Calcium 8.8 mg/dL (7.8-10.44); Carbon Dioxide 31 mmol/L (22-29); Chloride 107 mmol/L (98-107); Glucose 154 mg/dL (70-105); Magnesium 2.9 mg/dL (1.6-2.6); Phosphorus 3.6 mg/dL (2.3-4.7); Potassium 3.6 mmol/L (3.5-5.1); Sodium 148 mmol/L (136-145)
--- NOTE | 2020-02-14 06:59 | EKG ---
Test Reason : Blood Pressure : / mmHG Vent. Rate : 101 BPM Atrial Rate : 101 BPM P-R Int : 128 ms QRS Dur : 092 ms QT Int : 352 ms P-R-T Axes : 056 -17 026 degrees QTc Int : 456 ms Sinus tachycardia with Premature atrial complexes with Abberant conduction Incomplete right bundle branch block Borderline ECG Confirmed by SIMBA COSTA MD ([id number] on 02/14/2020 6:59:34 AM Referred By: SAFIA Confirmed By:SIMBA COSTA MD
[2020-02-14] MEDS: Senokot S 8.6-50 MG TAB PO SCH ×2 (08:11→20:42)
[2020-02-14] MEDS: Folic Acid 1 MG TAB PO SCH (08:11)
[2020-02-14] MEDS: Saccharomyces boulardii 250 MG CAP PO SCH (08:12)
[2020-02-14] MEDS: Multivitamin W/ Minerals 1 TAB PO SCH (08:12)
[2020-02-14] MEDS: Atorvastatin Calcium 20 MG TAB PO SCH (08:12)
[2020-02-14] MEDS: Ferrous Sulfate 325 MG TAB PO SCH ×2 (08:12→20:43)
[2020-02-14] MEDS: Oxazepam 10 MG CAP PO SCH ×2 (08:12→20:42)
[2020-02-14] MEDS: Lisinopril 20 MG TAB PO SCH (08:12)
[2020-02-14] MEDS: Aspirin 325 MG TAB PO SCH (08:13)
[2020-02-14] MEDS: Amlodipine 5 MG TAB PO SCH (08:14)
[2020-02-14] MEDS: Ascorbic Acid 500 mg Chewable Tablet PO SCH ×2 (08:14→20:43)
[2020-02-14] MEDS: Thiamine 100 MG TAB PO SCH (08:14)
[2020-02-14] MEDS: Polyethylene Glycol 3350 17 GM Packet PO SCH (08:15)
[2020-02-14] MEDS: Famotidine/PF 20 mg/2ml Vial SLOW IVP SCH ×2 (08:15→20:43)
[2020-02-14] MEDS: Insulin Glargine 5 UNITS in Pre-Filled Syringe 1 EACH SC SCH ×2 (09:04→20:41)
[2020-02-14] MEDS: Micafungin 100 MG in Sodium Chloride 0.9% 100 ML IVPB SCH (09:15)
[2020-02-14] MEDS: Silver Sulfadiazine 50 GM TUBE TOP SCH ×2 (09:15→20:44)
[2020-02-14] MEDS: Enoxaparin Sodium 30 MG/0.3 ML SYRINGE SC SCH ×2 (09:15→20:41)
[2020-02-14] MEDS: Erythromycin 250 MG in Sodium Chloride 0.9% 250 ML 250 ML IVPB SCH ×2 (12:16→18:08)
[2020-02-14] MEDS: Morphine 4 MG/ML VIAL SLOW IVP PRN (13:54)
[2020-02-14] MEDS: cefTRIAXone\\ROCEPHIN 2 GM in Sodium Chloride 0.9% 100 ML IVPB SCH (15:19)
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
[2020-02-15] MEDS: Erythromycin 250 MG in Sodium Chloride 0.9% 250 ML 250 ML IVPB SCH ×4 (00:20→18:13)
[2020-02-15] MEDS: Acetaminophen 650 MG/20.3 ML UDCUP PO SCH ×4 (00:21→17:18)
[2020-02-15] MEDS: cloNIDine 0.1 MG TAB PO SCH ×4 (00:21→17:18)
[2020-02-15] MEDS: HYDROcodone/Acetaminophen 10/325 mg Tablet PO SCH ×5 (00:21→17:18)
[2020-02-15] MEDS: Metoprolol Tartrate 25 MG TAB PO SCH ×4 (00:22→20:10)
[2020-02-15 03:43] LABS: #Lymphocytes 1.1 thou/uL (1.20-3.40); #Neutrophils 8.1 thou/uL (1.40-6.50); %Basophils 0.3 % (0.0-1.0); %Eosinophils 0.4 % (0.0-10.0); %Lymphocytes 10.8 % (21.0-51.0); %Neutrophils 78.4 % (42.0-75.0); Mean Corpuscular HGB CONC 31.7 g/dL (32.0-36.0); Mean Corpuscular Hemoglobin 30.7 pg (27.0-31.0); Mean Corpuscular Volume 96.7 fL (78.0-98.0); Mean Platelet Volume 7.3 fL (7.4-10.4); Platelet Count 677 thou/uL (130-400); RBC Distribution Width 13.6 % (11.5-14.5); Red Blood Cell (RBC) Count 2.61 mill/uL (4.70-6.10); White Blood Cell (WBC) Count 10.4 thou/uL (4.8-10.8)
[2020-02-15 04:00] LABS: Anion Gap 14 mmol/L (10-20); BUN (Urea Nitrogen) 28 mg/dL (8.4-25.7); Calc. Creatinine Clearance 130 mL/min (70-130); Calcium 8.1 mg/dL (7.8-10.44); Carbon Dioxide 27 mmol/L (22-29); Chloride 111 mmol/L (98-107); Glucose 154 mg/dL (70-105); Magnesium 2.6 mg/dL (1.6-2.6); Phosphorus 3.5 mg/dL (2.3-4.7); Potassium 3.7 mmol/L (3.5-5.1); Sodium 148 mmol/L (136-145)
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
[2020-02-15] MEDS ORDERED: Potassium Phosphate 15 MMOL in Sodium Chloride 0.9% 250 ML 250 ML IVPB SCH (08:00)
[2020-02-15] MEDS: Ascorbic Acid 500 mg Chewable Tablet PO SCH ×2 (08:15→20:06)
[2020-02-15] MEDS: Folic Acid 1 MG TAB PO SCH (08:15)
[2020-02-15] MEDS: Saccharomyces boulardii 250 MG CAP PO SCH (08:16)
[2020-02-15] MEDS: Atorvastatin Calcium 20 MG TAB PO SCH (08:16)
[2020-02-15] MEDS: Senokot S 8.6-50 MG TAB PO SCH ×2 (08:16→20:06)
[2020-02-15] MEDS: Famotidine 20 MG TAB PER TUBE SCH ×2 (08:16→20:06)
[2020-02-15] MEDS: Ferrous Sulfate 325 MG TAB PO SCH ×2 (08:16→20:09)
[2020-02-15] MEDS: Lisinopril 20 MG TAB PO SCH (08:16)
[2020-02-15] MEDS: Thiamine 100 MG TAB PO SCH (08:17)
[2020-02-15] MEDS: Multivitamin W/ Minerals 1 TAB PO SCH (08:17)
[2020-02-15] MEDS: Amlodipine 5 MG TAB PO SCH (08:18)
[2020-02-15] MEDS: Polyethylene Glycol 3350 17 GM Packet PO SCH (08:18)
[2020-02-15] MEDS: Oxazepam 10 MG CAP PO SCH (08:18)
[2020-02-15] MEDS: Enoxaparin Sodium 30 MG/0.3 ML SYRINGE SC SCH ×2 (08:18→20:06)
[2020-02-15] MEDS: Insulin Glargine 5 UNITS in Pre-Filled Syringe 1 EACH SC SCH ×2 (08:22→20:09)
[2020-02-15] MEDS: Silver Sulfadiazine 50 GM TUBE TOP SCH ×2 (08:22→20:10)
[2020-02-15] MEDS: Aspirin 325 MG TAB PO SCH (08:27)
--- NOTE | 2020-02-15 08:33 | RAD ---
EXAM: Single view of the chest HISTORY: Pneumonia COMPARISON: 02/13/2020 FINDINGS: Single view of the chest shows an enlarged but stable cardiomediastinal silhouette. The li maximino and tubes are unchanged in position. Patchy left-sided pulmonary infiltrates are stable. No acute osseous abnormality. IMPRESSION: Stable exam
[2020-02-15] MEDS: Micafungin 100 MG in Sodium Chloride 0.9% 100 ML IVPB SCH (08:48)
[2020-02-15] MEDS ORDERED: HYDROcodone/Acetaminophen 10/325 mg Tablet PO PRN (09:37)
[2020-02-15] MEDS: cefTRIAXone\\ROCEPHIN 2 GM in Sodium Chloride 0.9% 100 ML IVPB SCH (13:15)
[2020-02-15] MEDS ORDERED: Hydrochlorothiazide 25 MG TAB PO SCH (15:15)
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
[2020-02-15] MEDS: Morphine 4 MG/ML VIAL SLOW IVP PRN (18:30)
[2020-02-16] MEDS: HYDROcodone/Acetaminophen 10/325 mg Tablet PO SCH ×4 (00:24→17:54)
[2020-02-16] MEDS: Erythromycin 250 MG in Sodium Chloride 0.9% 250 ML 250 ML IVPB SCH ×2 (00:24→06:36)
[2020-02-16] MEDS: Acetaminophen 650 MG/20.3 ML UDCUP PO SCH ×4 (00:24→17:55)
[2020-02-16] MEDS: cloNIDine 0.1 MG TAB PO SCH ×4 (00:25→17:53)
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
[2020-02-16 05:41] LABS: #Eosinphils 0.1 thou/uL (0.0-0.7); #Lymphocytes 1.1 thou/uL (1.20-3.40); #Neutrophils 7.5 thou/uL (1.40-6.50); %Basophils 0.4 % (0.0-1.0); %Eosinophils 0.7 % (0.0-10.0); %Lymphocytes 11.4 % (21.0-51.0); %Monocytes 10.5 % (0.0-10.0); %Neutrophils 77.1 % (42.0-75.0); Mean Corpuscular HGB CONC 32.5 g/dL (32.0-36.0); Mean Corpuscular Hemoglobin 30.8 pg (27.0-31.0); Mean Corpuscular Volume 94.7 fL (78.0-98.0); Mean Platelet Volume 7.2 fL (7.4-10.4); Platelet Count 684 thou/uL (130-400); RBC Distribution Width 13.5 % (11.5-14.5); Red Blood Cell (RBC) Count 2.59 mill/uL (4.70-6.10); White Blood Cell (WBC) Count 9.8 thou/uL (4.8-10.8)
[2020-02-16 06:01] LABS: Anion Gap 12 mmol/L (10-20); BUN (Urea Nitrogen) 20 mg/dL (8.4-25.7); Calc. Creatinine Clearance 141 mL/min (70-130); Calcium 8.2 mg/dL (7.8-10.44); Carbon Dioxide 28 mmol/L (22-29); Chloride 109 mmol/L (98-107); Glucose 114 mg/dL (70-105); Magnesium 2.3 mg/dL (1.6-2.6); Phosphorus 3.5 mg/dL (2.3-4.7); Potassium 3.4 mmol/L (3.5-5.1); Sodium 146 mmol/L (136-145)
--- NOTE | 2020-02-16 07:03 | EKG ---
Test Reason : TACHY Blood Pressure : / mmHG Vent. Rate : 126 BPM Atrial Rate : 126 BPM P-R Int : 126 ms QRS Dur : 076 ms QT Int : 306 ms P-R-T Axes : 062 -08 012 degrees QTc Int : 443 ms Sinus tachycardia Cannot rule out Inferior infarct , age undetermined Abnormal ECG When compared with ECG of 11-FEB-2020 05:16, Abberant conduction is no longer Present Confirmed by IGOR PERALTA, SIMBA ([id number]) on 02/16/2020 7:03:29 AM Referred By: DEDRICK Confirmed By:SIMBA COSTA MD
[2020-02-16] MEDS: Thiamine 100 MG TAB PO SCH (09:12)
[2020-02-16] MEDS: Amlodipine 5 MG TAB PO SCH (09:12)
[2020-02-16] MEDS: Enoxaparin Sodium 30 MG/0.3 ML SYRINGE SC SCH ×2 (09:12→21:43)
[2020-02-16] MEDS: Aspirin 325 MG TAB PO SCH (09:13)
[2020-02-16] MEDS: Senokot S 8.6-50 MG TAB PO SCH ×2 (09:13→21:43)
[2020-02-16] MEDS: Famotidine 20 MG TAB PER TUBE SCH ×2 (09:13→21:42)
[2020-02-16] MEDS: Folic Acid 1 MG TAB PO SCH (09:14)
[2020-02-16] MEDS: Ferrous Sulfate 325 MG TAB PO SCH ×2 (09:14→21:42)
[2020-02-16] MEDS: Saccharomyces boulardii 250 MG CAP PO SCH (09:15)
[2020-02-16] MEDS: Lisinopril 20 MG TAB PO SCH (09:15)
[2020-02-16] MEDS: Atorvastatin Calcium 20 MG TAB PO SCH (09:15)
[2020-02-16] MEDS: Metoprolol Tartrate 25 MG TAB PO SCH (09:15)
[2020-02-16] MEDS: Hydrochlorothiazide 25 MG TAB PO SCH (09:16)
[2020-02-16] MEDS: Ascorbic Acid 500 mg Chewable Tablet PO SCH ×2 (09:16→21:42)
[2020-02-16] MEDS: Multivitamin W/ Minerals 1 TAB PO SCH (09:16)
[2020-02-16] MEDS: Insulin Glargine 5 UNITS in Pre-Filled Syringe 1 EACH SC SCH ×2 (09:35→21:43)
[2020-02-16] MEDS: Micafungin 100 MG in Sodium Chloride 0.9% 100 ML IVPB SCH (09:35)
[2020-02-16] MEDS: Silver Sulfadiazine 50 GM TUBE TOP SCH ×2 (09:36→21:44)
[2020-02-16] MEDS ORDERED: Potassium Phosphate 15 MMOL in Sodium Chloride 0.9% 250 ML 250 ML IVPB SCH (10:00)
[2020-02-16] MEDS: Insulin Regular 300 UNITS/3 ML VIAL SC PRN (11:13)
[2020-02-16] MEDS ORDERED: Erythromycin 250 MG in Sodium Chloride 0.9% 250 ML 250 ML IVPB SCH (12:00)
[2020-02-16] MEDS ORDERED: Morphine 4 MG/ML VIAL SLOW IVP PRN (14:15)
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
[2020-02-17] MEDS: Acetaminophen 650 MG/20.3 ML UDCUP PO SCH ×5 (00:06→22:19)
[2020-02-17] MEDS: cloNIDine 0.1 MG TAB PO SCH ×5 (00:07→22:20)
[2020-02-17] MEDS: HYDROcodone/Acetaminophen 10/325 mg Tablet PO SCH ×5 (00:07→22:19)
[2020-02-17 04:00] LABS: #Eosinphils 0.1 thou/uL (0.0-0.7); #Lymphocytes 1.1 thou/uL (1.20-3.40); #Monocytes 0.9 thou/uL (0.11-0.59); #Neutrophils 7.5 thou/uL (1.40-6.50); %Basophils 0.2 % (0.0-1.0); %Lymphocytes 11.5 % (21.0-51.0); %Monocytes 9.4 % (0.0-10.0); %Neutrophils 77.8 % (42.0-75.0); Hemoglobin 8.4 g/dL (14.0-18.0); Mean Corpuscular HGB CONC 33.6 g/dL (32.0-36.0); Mean Corpuscular Hemoglobin 31.4 pg (27.0-31.0); Mean Corpuscular Volume 93.7 fL (78.0-98.0); Mean Platelet Volume 7.2 fL (7.4-10.4); Platelet Count 686 thou/uL (130-400); RBC Distribution Width 13.7 % (11.5-14.5); Red Blood Cell (RBC) Count 2.66 mill/uL (4.70-6.10); White Blood Cell (WBC) Count 9.6 thou/uL (4.8-10.8)
[2020-02-17 04:19] LABS: Anion Gap 12 mmol/L (10-20); BUN (Urea Nitrogen) 14 mg/dL (8.4-25.7); Calc. Creatinine Clearance 159 mL/min (70-130); Carbon Dioxide 27 mmol/L (22-29); Chloride 105 mmol/L (98-107); Glucose 127 mg/dL (70-105); Magnesium 2.1 mg/dL (1.6-2.6); Phosphorus 3.3 mg/dL (2.3-4.7); Potassium 3.3 mmol/L (3.5-5.1); Sodium 141 mmol/L (136-145)
[2020-02-17] MEDS: Hydrochlorothiazide 25 MG TAB PO SCH (08:13)
[2020-02-17] MEDS: Atorvastatin Calcium 20 MG TAB PO SCH (08:13)
[2020-02-17] MEDS: Enoxaparin Sodium 30 MG/0.3 ML SYRINGE SC SCH ×2 (08:13→21:03)
[2020-02-17] MEDS: Famotidine 20 MG TAB PER TUBE SCH ×2 (08:13→21:03)
[2020-02-17] MEDS: Lisinopril 20 MG TAB PO SCH (08:14)
[2020-02-17] MEDS: Senokot S 8.6-50 MG TAB PO SCH ×2 (08:14→21:04)
[2020-02-17] MEDS: Multivitamin W/ Minerals 1 TAB PO SCH (08:14)
[2020-02-17] MEDS: Metoprolol Tartrate 25 MG TAB PO SCH (08:14)
[2020-02-17] MEDS: Ascorbic Acid 500 mg Chewable Tablet PO SCH ×2 (08:15→21:03)
[2020-02-17] MEDS: Aspirin 325 MG TAB PO SCH (08:15)
[2020-02-17] MEDS: Amlodipine 5 MG TAB PO SCH (08:15)
[2020-02-17] MEDS: Ferrous Sulfate 325 MG TAB PO SCH ×2 (08:15→21:03)
[2020-02-17] MEDS: Thiamine 100 MG TAB PO SCH (08:16)
[2020-02-17] MEDS: Folic Acid 1 MG TAB PO SCH (08:16)
[2020-02-17] MEDS: Insulin Glargine 5 UNITS in Pre-Filled Syringe 1 EACH SC SCH ×2 (08:17→21:03)
[2020-02-17] MEDS: Micafungin 100 MG in Sodium Chloride 0.9% 100 ML IVPB SCH (08:17)
--- NOTE | 2020-02-17 09:01 | RAD ---
EXAM: Abdomen one view: HISTORY: NG tube placement evaluation COMPARISON: 02/12/2020 FINDINGS: NG tube in satisfactory location. Scattered gas and borderline dilated small bowel loops with some gas in the colon. Somewhat less dist ended small bowel loops and on prior study. No free intraperitoneal air or extraluminal gas. No overt calculus. IMPRESSION: Somewhat less distended small bowel loops in prior study. NG tube in satisfactory location.
--- NOTE | 2020-02-17 09:02 | RAD ---
EXAM: Chest one view: HISTORY: Pneumonia COMPARISON: 02/15/2020 FINDINGS: NG tube and tracheostomy tube in place. Heart size: Within normal limits. Lungs: Patchy bilateral interstitial and alveolar opacity changes in the colon the midlung zones with little overall change from prior exam. No evidence for confluent lobar pneumonia, significant pleural effusion, acute edema, or pneumothorax , or other significant acute process. IMPRESSION: Overall stable findings.
[2020-02-17] MEDS: Insulin Regular 300 UNITS/3 ML VIAL SC PRN (17:30)
[2020-02-17] MEDS: Silver Sulfadiazine 50 GM TUBE TOP SCH (21:07)
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
[2020-02-18 04:16] LABS: #Eosinphils 0.1 thou/uL (0.0-0.7); #Lymphocytes 1.1 thou/uL (1.20-3.40); #Monocytes 0.9 thou/uL (0.11-0.59); %Basophils 0.3 % (0.0-1.0); %Eosinophils 1.2 % (0.0-10.0); %Lymphocytes 12.1 % (21.0-51.0); %Neutrophils 76.3 % (42.0-75.0); Hemoglobin 8.4 g/dL (14.0-18.0); Mean Corpuscular HGB CONC 32.5 g/dL (32.0-36.0); Mean Corpuscular Hemoglobin 30.8 pg (27.0-31.0); Mean Corpuscular Volume 94.8 fL (78.0-98.0); Platelet Count 678 thou/uL (130-400); RBC Distribution Width 13.7 % (11.5-14.5); Red Blood Cell (RBC) Count 2.74 mill/uL (4.70-6.10); White Blood Cell (WBC) Count 9.1 thou/uL (4.8-10.8)
[2020-02-18 04:38] LABS: Anion Gap 12 mmol/L (10-20); BUN (Urea Nitrogen) 16 mg/dL (8.4-25.7); Calc. Creatinine Clearance 151 mL/min (70-130); Calcium 7.8 mg/dL (7.8-10.44); Carbon Dioxide 27 mmol/L (22-29); Chloride 106 mmol/L (98-107); Glucose 168 mg/dL (70-105); Magnesium 2.2 mg/dL (1.6-2.6); Phosphorus 2.5 mg/dL (2.3-4.7); Potassium 3.2 mmol/L (3.5-5.1); Sodium 142 mmol/L (136-145)
[2020-02-18] MEDS: Insulin Regular 300 UNITS/3 ML VIAL SC PRN ×2 (04:57→20:39)
[2020-02-18] MEDS: Acetaminophen 650 MG/20.3 ML UDCUP PO SCH ×4 (05:00→23:00)
[2020-02-18] MEDS: HYDROcodone/Acetaminophen 10/325 mg Tablet PO SCH ×4 (05:03→23:00)
[2020-02-18] MEDS: cloNIDine 0.1 MG TAB PO SCH ×4 (05:04→23:01)
[2020-02-18] MEDS: Micafungin 100 MG in Sodium Chloride 0.9% 100 ML IVPB SCH (08:24)
[2020-02-18] MEDS: Insulin Glargine 5 UNITS in Pre-Filled Syringe 1 EACH SC SCH ×2 (08:24→20:35)
[2020-02-18] MEDS: Enoxaparin Sodium 30 MG/0.3 ML SYRINGE SC SCH ×2 (08:24→20:34)
[2020-02-18] MEDS: Multivitamin W/ Minerals 1 TAB PO SCH (08:25)
[2020-02-18] MEDS: Senokot S 8.6-50 MG TAB PO SCH ×2 (08:25→20:35)
[2020-02-18] MEDS: Hydrochlorothiazide 25 MG TAB PO SCH (08:25)
[2020-02-18] MEDS: Aspirin 325 MG TAB PO SCH (08:25)
[2020-02-18] MEDS: Metoprolol Tartrate 25 MG TAB PO SCH (08:25)
[2020-02-18] MEDS: Lisinopril 20 MG TAB PO SCH (08:25)
[2020-02-18] MEDS: Folic Acid 1 MG TAB PO SCH (08:26)
[2020-02-18] MEDS: Famotidine 20 MG TAB PER TUBE SCH ×2 (08:26→20:34)
[2020-02-18] MEDS: Amlodipine 5 MG TAB PO SCH (08:26)
[2020-02-18] MEDS: Ferrous Sulfate 325 MG TAB PO SCH ×2 (08:26→20:34)
[2020-02-18] MEDS: Atorvastatin Calcium 20 MG TAB PO SCH (08:27)
[2020-02-18] MEDS: Thiamine 100 MG TAB PO SCH (08:27)
[2020-02-18] MEDS: Ascorbic Acid 500 mg Chewable Tablet PO SCH ×2 (08:27→20:34)
[2020-02-18] MEDS: Silver Sulfadiazine 50 GM TUBE TOP SCH ×3 (09:19→21:38)
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
[2020-02-19 04:26] LABS: #Eosinphils 0.1 thou/uL (0.0-0.7); #Lymphocytes 1.1 thou/uL (1.20-3.40); #Neutrophils 8.2 thou/uL (1.40-6.50); %Basophils 0.4 % (0.0-1.0); %Eosinophils 1.4 % (0.0-10.0); %Lymphocytes 10.9 % (21.0-51.0); %Monocytes 9.1 % (0.0-10.0); %Neutrophils 78.1 % (42.0-75.0); Hemoglobin 8.6 g/dL (14.0-18.0); Mean Corpuscular Hemoglobin 29.4 pg (27.0-31.0); Mean Corpuscular Volume 94.7 fL (78.0-98.0); Mean Platelet Volume 7.2 fL (7.4-10.4); Platelet Count 705 thou/uL (130-400); RBC Distribution Width 13.8 % (11.5-14.5); Red Blood Cell (RBC) Count 2.92 mill/uL (4.70-6.10); White Blood Cell (WBC) Count 10.4 thou/uL (4.8-10.8)
[2020-02-19 04:48] LABS: Anion Gap 9 mmol/L (10-20); BUN (Urea Nitrogen) 13 mg/dL (8.4-25.7); Calc. Creatinine Clearance 165 mL/min (70-130); Calcium 7.9 mg/dL (7.8-10.44); Carbon Dioxide 29 mmol/L (22-29); Chloride 105 mmol/L (98-107); Glucose 141 mg/dL (70-105); Magnesium 2.3 mg/dL (1.6-2.6); Phosphorus 2.6 mg/dL (2.3-4.7); Potassium 3.2 mmol/L (3.5-5.1); Sodium 140 mmol/L (136-145)
[2020-02-19] MEDS: Acetaminophen 650 MG/20.3 ML UDCUP PO SCH ×3 (05:02→18:35)
[2020-02-19] MEDS: HYDROcodone/Acetaminophen 10/325 mg Tablet PO SCH ×3 (05:02→18:28)
[2020-02-19] MEDS: cloNIDine 0.1 MG TAB PO SCH ×3 (05:03→18:28)
[2020-02-19] MEDS ORDERED: Potassium Phosphate 30 MMOL in Sodium Chloride 0.9% 250 ML 250 ML IVPB SCH (05:30)
[2020-02-19] MEDS: Atorvastatin Calcium 20 MG TAB PO SCH (08:05)
[2020-02-19] MEDS: Senokot S 8.6-50 MG TAB PO SCH (08:05)
[2020-02-19] MEDS: Famotidine 20 MG TAB PER TUBE SCH ×2 (08:06→21:09)
[2020-02-19] MEDS: Amlodipine 5 MG TAB PO SCH (08:06)
[2020-02-19] MEDS: Metoprolol Tartrate 25 MG TAB PO SCH (08:06)
[2020-02-19] MEDS: Multivitamin W/ Minerals 1 TAB PO SCH (08:06)
[2020-02-19] MEDS: Thiamine 100 MG TAB PO SCH (08:06)
[2020-02-19] MEDS: Ferrous Sulfate 325 MG TAB PO SCH ×2 (08:06→21:09)
[2020-02-19] MEDS: Folic Acid 1 MG TAB PO SCH (08:06)
[2020-02-19] MEDS: Ascorbic Acid 500 mg Chewable Tablet PO SCH ×2 (08:06→21:09)
[2020-02-19] MEDS: Hydrochlorothiazide 25 MG TAB PO SCH (08:06)
[2020-02-19] MEDS: Lisinopril 20 MG TAB PO SCH (08:06)
[2020-02-19] MEDS: Aspirin 325 MG TAB PO SCH (08:07)
[2020-02-19] MEDS: Enoxaparin Sodium 30 MG/0.3 ML SYRINGE SC SCH ×2 (08:07→21:11)
[2020-02-19] MEDS: Silver Sulfadiazine 50 GM TUBE TOP SCH ×2 (08:21→18:51)
[2020-02-19] MEDS: Insulin Regular 300 UNITS/3 ML VIAL SC PRN (08:22)
--- NOTE | 2020-02-19 08:31 | RAD ---
Exam: Left ankle 3 views: HISTORY: Follow-up external fixation changes are comminuted tibial and fibular fractures. COMPARISON: 02/02/2020 FINDINGS: External fixator in place. Marked improvement in position and alignment of the very extensively commi nuted distal tibial metadiaphyseal and medial malleolar fractures and distal fibular fractures. IMPRESSION: Improved position and alignment following external fixation.
[2020-02-19] MEDS: Insulin Glargine 5 UNITS in Pre-Filled Syringe 1 EACH SC SCH (08:32)
[2020-02-19] MEDS: Micafungin 100 MG in Sodium Chloride 0.9% 100 ML IVPB SCH (09:05)
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
[2020-02-20] MEDS: Insulin Glargine 5 UNITS in Pre-Filled Syringe 1 EACH SC SCH ×3 (00:32→22:24)
[2020-02-20] MEDS: Silver Sulfadiazine 50 GM TUBE TOP SCH ×2 (00:32→09:09)
[2020-02-20] MEDS: HYDROcodone/Acetaminophen 10/325 mg Tablet PO SCH ×4 (00:33→18:59)
[2020-02-20] MEDS: Acetaminophen 650 MG/20.3 ML UDCUP PO SCH ×4 (00:33→19:00)
[2020-02-20] MEDS: cloNIDine 0.1 MG TAB PO SCH ×4 (00:33→19:00)
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
[2020-02-20 08:43] LABS: #Basophils 0.1 thou/uL (0.0-0.2); #Eosinphils 0.1 thou/uL (0.0-0.7); #Lymphocytes 1.1 thou/uL (1.20-3.40); #Monocytes 0.9 thou/uL (0.11-0.59); %Basophils 0.6 % (0.0-1.0); %Eosinophils 1.2 % (0.0-10.0); %Lymphocytes 9.8 % (21.0-51.0); %Monocytes 8.1 % (0.0-10.0); %Neutrophils 80.3 % (42.0-75.0); Hemoglobin 9.5 g/dL (14.0-18.0); Mean Corpuscular HGB CONC 32.6 g/dL (32.0-36.0); Mean Corpuscular Hemoglobin 30.5 pg (27.0-31.0); Mean Corpuscular Volume 93.5 fL (78.0-98.0); Mean Platelet Volume 7.2 fL (7.4-10.4); Platelet Count 741 thou/uL (130-400); White Blood Cell (WBC) Count 11.2 thou/uL (4.8-10.8)
[2020-02-20 09:02] LABS: Anion Gap 13 mmol/L (10-20); BUN (Urea Nitrogen) 10 mg/dL (8.4-25.7); Calc. Creatinine Clearance 173 mL/min (70-130); Calcium 8.1 mg/dL (7.8-10.44); Carbon Dioxide 25 mmol/L (22-29); Chloride 105 mmol/L (98-107); Glucose 144 mg/dL (70-105); Magnesium 2.1 mg/dL (1.6-2.6); Phosphorus 2.6 mg/dL (2.3-4.7); Potassium 3.9 mmol/L (3.5-5.1); Sodium 139 mmol/L (136-145)
[2020-02-20] MEDS: Famotidine 20 MG TAB PER TUBE SCH ×2 (09:07→21:49)
[2020-02-20] MEDS: Ascorbic Acid 500 mg Chewable Tablet PO SCH ×2 (09:07→21:49)
[2020-02-20] MEDS: Amlodipine 5 MG TAB PO SCH (09:07)
[2020-02-20] MEDS: Hydrochlorothiazide 25 MG TAB PO SCH (09:07)
[2020-02-20] MEDS: Aspirin 325 MG TAB PO SCH (09:07)
[2020-02-20] MEDS: Enoxaparin Sodium 30 MG/0.3 ML SYRINGE SC SCH ×2 (09:08→21:50)
[2020-02-20] MEDS: Lisinopril 20 MG TAB PO SCH (09:08)
[2020-02-20] MEDS: Metoprolol Tartrate 25 MG TAB PO SCH (09:08)
[2020-02-20] MEDS: Folic Acid 1 MG TAB PO SCH (09:08)
[2020-02-20] MEDS: Atorvastatin Calcium 20 MG TAB PO SCH (09:08)
[2020-02-20] MEDS: Thiamine 100 MG TAB PO SCH (09:08)
[2020-02-20] MEDS: Ferrous Sulfate 325 MG TAB PO SCH ×2 (09:08→21:49)
[2020-02-20] MEDS: Multivitamin W/ Minerals 1 TAB PO SCH (09:09)
[2020-02-20] MEDS: Insulin Regular 300 UNITS/3 ML VIAL SC PRN (13:57)
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
[2020-02-21] MEDS: cloNIDine 0.1 MG TAB PO SCH ×5 (01:15→23:41)
[2020-02-21] MEDS: HYDROcodone/Acetaminophen 10/325 mg Tablet PO SCH ×5 (01:16→23:42)
[2020-02-21] MEDS: Acetaminophen 650 MG/20.3 ML UDCUP PO SCH ×5 (01:17→23:41)
[2020-02-21] MEDS: Silver Sulfadiazine 50 GM TUBE TOP SCH ×3 (01:18→21:43)
[2020-02-21 08:26] LABS: #Eosinphils 0.2 thou/uL (0.0-0.7); #Lymphocytes 1.2 thou/uL (1.20-3.40); #Monocytes 1.1 thou/uL (0.11-0.59); #Neutrophils 9.3 thou/uL (1.40-6.50); %Basophils 0.4 % (0.0-1.0); %Eosinophils 1.3 % (0.0-10.0); %Monocytes 9.2 % (0.0-10.0); %Neutrophils 79.1 % (42.0-75.0); Hemoglobin 10.3 g/dL (14.0-18.0); Mean Corpuscular HGB CONC 32.9 g/dL (32.0-36.0); Mean Corpuscular Hemoglobin 31.3 pg (27.0-31.0); Mean Corpuscular Volume 95.2 fL (78.0-98.0); Mean Platelet Volume 8.3 fL (7.4-10.4); Platelet Count 523 thou/uL (130-400); RBC Distribution Width 13.8 % (11.5-14.5); Red Blood Cell (RBC) Count 3.29 mill/uL (4.70-6.10); White Blood Cell (WBC) Count 11.8 thou/uL (4.8-10.8)
[2020-02-21 08:42] LABS: Anion Gap 14 mmol/L (10-20); BUN (Urea Nitrogen) 10 mg/dL (8.4-25.7); Calc. Creatinine Clearance 163 mL/min (70-130); Calcium 8.2 mg/dL (7.8-10.44); Carbon Dioxide 25 mmol/L (22-29); Chloride 105 mmol/L (98-107); Glucose 164 mg/dL (70-105); Magnesium 2.1 mg/dL (1.6-2.6); Phosphorus 2.3 mg/dL (2.3-4.7); Potassium 3.6 mmol/L (3.5-5.1); Sodium 140 mmol/L (136-145)
[2020-02-21] MEDS: Enoxaparin Sodium 30 MG/0.3 ML SYRINGE SC SCH ×2 (09:53→21:04)
[2020-02-21] MEDS: Metoprolol Tartrate 25 MG TAB PO SCH (09:54)
[2020-02-21] MEDS: Ferrous Sulfate 325 MG TAB PO SCH ×2 (09:54→21:02)
[2020-02-21] MEDS: Multivitamin W/ Minerals 1 TAB PO SCH (09:54)
[2020-02-21] MEDS: Amlodipine 5 MG TAB PO SCH (09:54)
[2020-02-21] MEDS: Ascorbic Acid 500 mg Chewable Tablet PO SCH ×2 (09:54→21:03)
[2020-02-21] MEDS: Aspirin 325 MG TAB PO SCH (09:54)
[2020-02-21] MEDS: Hydrochlorothiazide 25 MG TAB PO SCH (09:54)
[2020-02-21] MEDS: Tamsulosin HCl 0.4 MG CAP PO SCH (09:55)
[2020-02-21] MEDS: Folic Acid 1 MG TAB PO SCH (09:55)
[2020-02-21] MEDS: Lisinopril 20 MG TAB PO SCH (09:55)
[2020-02-21] MEDS: Atorvastatin Calcium 20 MG TAB PO SCH (09:55)
[2020-02-21] MEDS: Thiamine 100 MG TAB PO SCH (09:55)
[2020-02-21] MEDS: Insulin Glargine 5 UNITS in Pre-Filled Syringe 1 EACH SC SCH ×2 (09:55→21:40)
[2020-02-21] MEDS: Famotidine 20 MG TAB PER TUBE SCH ×2 (09:56→21:02)
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
[2020-02-21] MEDS: Insulin Regular 300 UNITS/3 ML VIAL SC PRN (18:41)
[2020-02-21] MEDS: Zinc Sulfate 220 MG CAP PO SCH (21:02)
[2020-02-22] MEDS: cloNIDine 0.1 MG TAB PO SCH ×4 (05:02→23:51)
[2020-02-22] MEDS: Acetaminophen 650 MG/20.3 ML UDCUP PO SCH ×3 (05:03→18:11)
[2020-02-22] MEDS: HYDROcodone/Acetaminophen 10/325 mg Tablet PO SCH ×3 (05:03→18:11)
[2020-02-22] MEDS: Lisinopril 20 MG TAB PO SCH (09:10)
[2020-02-22] MEDS: Famotidine 20 MG TAB PER TUBE SCH ×2 (09:10→20:55)
[2020-02-22] MEDS: Hydrochlorothiazide 25 MG TAB PO SCH (09:10)
[2020-02-22] MEDS: Aspirin 325 MG TAB PO SCH (09:10)
[2020-02-22] MEDS: Ascorbic Acid 500 mg Chewable Tablet PO SCH ×2 (09:10→20:55)
[2020-02-22] MEDS: Folic Acid 1 MG TAB PO SCH (09:11)
[2020-02-22] MEDS: Metoprolol Tartrate 25 MG TAB PO SCH (09:11)
[2020-02-22] MEDS: Thiamine 100 MG TAB PO SCH (09:11)
[2020-02-22] MEDS: Amlodipine 5 MG TAB PO SCH (09:11)
[2020-02-22] MEDS: Silver Sulfadiazine 50 GM TUBE TOP SCH ×2 (09:11→21:17)
[2020-02-22] MEDS: Enoxaparin Sodium 30 MG/0.3 ML SYRINGE SC SCH ×2 (09:11→20:56)
[2020-02-22] MEDS: Atorvastatin Calcium 20 MG TAB PO SCH (09:11)
[2020-02-22] MEDS: Ferrous Sulfate 325 MG TAB PO SCH ×2 (09:11→20:55)
[2020-02-22] MEDS: Multivitamin W/ Minerals 1 TAB PO SCH (09:11)
[2020-02-22] MEDS: Tamsulosin HCl 0.4 MG CAP PO SCH (09:11)
[2020-02-22] MEDS: Insulin Glargine 5 UNITS in Pre-Filled Syringe 1 EACH SC SCH ×2 (11:52→21:16)
[2020-02-22] MEDS: Insulin Regular 300 UNITS/3 ML VIAL SC PRN (11:53)
--- NOTE | 2020-02-22 13:56 | CON ---
DATE OF CONSULTATION: 02/22/2020 HISTORY OF PRESENT ILLNESS: Mr. Lynch has been able to be anticoagulated now. He is ready for transfer out of the hospital, and I have been asked to take his inferior vena cava filter out. He is currently anticoagulated with Lovenox 30 mg twice a day. His most recent creatinine is 0.7. I have discussed filter removal process with him and we will plan for removal in the morning. Job ID: [id number]
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
[2020-02-22] MEDS: Zinc Sulfate 220 MG CAP PO SCH (20:55)
[2020-02-22] MEDS ORDERED: traMADol HCl 50 MG TAB PO PRN (23:28)
[2020-02-22] MEDS: Acetaminophen 500 MG TAB PO SCH (23:45)
[2020-02-22] MEDS: Oxazepam 10 MG CAP PO SCH (23:45)
[2020-02-23] MEDS ORDERED: Haloperidol Lactate 5 MG/ML VIAL IM SCH (01:15)
[2020-02-23 03:08] LABS: Bacteria/HPF None Seen HPF (None Seen); Bilirubin Negative (Negative); Blood, Urine Negative (Negative); Clarity Clear (Clear); Glucose, Urine (Dipstick) Normal (Negative); Ketone, Urine Negative (Negative); Leukocyte Negative Leu/uL (Negative); Nitrite Negative (Negative); Protein, Urine (Dipstick) Negative (Neg-Trace); RBC/HPF 0-3 HPF (0-3); Specific Gravity, Urine 1.012 (1.002-1.036); Squamous Epithelial None Seen HPF (0-3); WBC/HPF 0-3 HPF (0-3)
[2020-02-23 03:09] LABS: Urine Culture Reflex No No
[2020-02-23] MEDS: cloNIDine 0.1 MG TAB PO SCH ×4 (06:29→23:41)
[2020-02-23] MEDS: Oxazepam 10 MG CAP PO SCH ×3 (06:29→23:41)
[2020-02-23] MEDS: Acetaminophen 500 MG TAB PO SCH ×4 (06:29→23:41)
--- NOTE | 2020-02-23 09:18 | OP ---
DATE OF PROCEDURE: 02/23/2020 PREOPERATIVE DIAGNOSIS: Removal of inferior vena cava filter, ready for removal. POSTOPERATIVE DIAGNOSIS: Removal of inferior vena cava filter, ready for removal. PROCEDURES PERFORMED: 1. Ultrasound-guided left common femoral vein access. 2. Inferior vena cavogram with aborted retrieval of filter. TOTAL CONTRAST: 4 mL. DESCRIPTION OF PROCEDURE: The patient was brought to the laborer bituminous paving, placed in supine position on laborer bituminous paving table. Appropriate monitoring was placed. Using ultrasound guidance, the left groin was anesthetized with 1% lidocaine. Using ultrasound guidance, left femoral vein was accessed, and 6-[place] sheath placed. Hand-injected venogram was performed, illuminating the iliac and vena cava. There was no thrombus noted. The sheath was upsized to an 11. The 11-[place] retrieval sheath was passed into the inferior vena cava. The small Tri-[place] snare was passed through the sheath. Due to the angles, we were not able to snare the tip of the filter. All of the sheaths were removed, and manual pressure held for hemostasis. Job ID: [id number]
[2020-02-23] MEDS ORDERED: Lorazepam 2 MG/ML VIAL ONE (09:42)
[2020-02-23] MEDS ORDERED: Sodium Chloride 0.9% 10 ML ONE (09:43)
[2020-02-23] MEDS ORDERED: Lorazepam 2 MG/ML VIAL SLOW IVP SCH (10:00)
[2020-02-23] MEDS: Famotidine 20 MG TAB PER TUBE SCH ×2 (10:35→20:45)
[2020-02-23] MEDS: Metoprolol Tartrate 25 MG TAB PO SCH (10:35)
[2020-02-23] MEDS: Ascorbic Acid 500 mg Chewable Tablet PO SCH ×2 (10:36→20:45)
[2020-02-23] MEDS: Tamsulosin HCl 0.4 MG CAP PO SCH (10:36)
[2020-02-23] MEDS: Aspirin 325 MG TAB PO SCH (10:36)
[2020-02-23] MEDS: Multivitamin W/ Minerals 1 TAB PO SCH (10:36)
[2020-02-23] MEDS: Atorvastatin Calcium 20 MG TAB PO SCH (10:36)
[2020-02-23] MEDS: Lisinopril 20 MG TAB PO SCH (10:36)
[2020-02-23] MEDS: Thiamine 100 MG TAB PO SCH (10:36)
[2020-02-23] MEDS: Hydrochlorothiazide 25 MG TAB PO SCH (10:36)
[2020-02-23] MEDS: Amlodipine 5 MG TAB PO SCH (10:36)
[2020-02-23] MEDS: Folic Acid 1 MG TAB PO SCH (10:36)
[2020-02-23] MEDS: Insulin Glargine 5 UNITS in Pre-Filled Syringe 1 EACH SC SCH ×2 (10:37→20:46)
[2020-02-23] MEDS: Ferrous Sulfate 325 MG TAB PO SCH ×2 (10:37→20:45)
[2020-02-23] MEDS: Enoxaparin Sodium 30 MG/0.3 ML SYRINGE SC SCH ×2 (10:37→20:45)
[2020-02-23] MEDS ORDERED: Iopamidol 370 76% 50 ML VIAL FS ONE (11:06)
[2020-02-23 11:19] VITALS: BMI 27.7
[2020-02-23] MEDS: RisperDAL M-TAB 1 MG TAB SL SCH (11:23)
[2020-02-23] MEDS: Silver Sulfadiazine 50 GM TUBE TOP SCH ×2 (12:09→21:00)
[2020-02-23 16:37] LABS: #Basophils 0.1 thou/uL (0.0-0.2); #Eosinphils 0.1 thou/uL (0.0-0.7); #Monocytes 1.1 thou/uL (0.11-0.59); #Neutrophils 9.3 thou/uL (1.40-6.50); %Basophils 0.4 % (0.0-1.0); %Eosinophils 0.8 % (0.0-10.0); %Lymphocytes 8.3 % (21.0-51.0); %Monocytes 9.3 % (0.0-10.0); %Neutrophils 81.1 % (42.0-75.0); Hemoglobin 10.8 g/dL (14.0-18.0); Mean Corpuscular HGB CONC 31.6 g/dL (32.0-36.0); Mean Corpuscular Volume 91.6 fL (78.0-98.0); Mean Platelet Volume 6.7 fL (7.4-10.4); Platelet Count 705 thou/uL (130-400); RBC Distribution Width 14.1 % (11.5-14.5); Red Blood Cell (RBC) Count 3.74 mill/uL (4.70-6.10); White Blood Cell (WBC) Count 11.5 thou/uL (4.8-10.8)
[2020-02-23 16:55] LABS: Anion Gap 13 mmol/L (10-20); BUN (Urea Nitrogen) 9 mg/dL (8.4-25.7); Calc. Creatinine Clearance 141 mL/min (70-130); Calcium 8.8 mg/dL (7.8-10.44); Carbon Dioxide 25 mmol/L (22-29); Chloride 104 mmol/L (98-107); Glucose 212 mg/dL (70-105); Magnesium 2.3 mg/dL (1.6-2.6); Phosphorus 2.7 mg/dL (2.3-4.7); Potassium 3.8 mmol/L (3.5-5.1); Sodium 138 mmol/L (136-145)
[2020-02-23] MEDS: Insulin Regular 300 UNITS/3 ML VIAL SC PRN (18:01)
[2020-02-23] MEDS ORDERED: Melatonin 3 MG TAB PO PRN (18:40)
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
[2020-02-23] MEDS: Zinc Sulfate 220 MG CAP PO SCH (20:45)
[2020-02-23] MEDS: traMADol HCl 50 MG TAB PO PRN (21:06)
[2020-02-23] MEDS ORDERED: Sodium Chloride 0.9% 500 ML IV SCH (22:15)
[2020-02-24] MEDS: traMADol HCl 50 MG TAB PO PRN ×2 (04:35→20:32)
[2020-02-24] MEDS: Acetaminophen 500 MG TAB PO SCH ×4 (06:29→23:13)
[2020-02-24] MEDS: cloNIDine 0.1 MG TAB PO SCH ×4 (06:30→23:13)
[2020-02-24] MEDS: Oxazepam 10 MG CAP PO SCH ×3 (06:30→23:13)
[2020-02-24] MEDS: Tamsulosin HCl 0.4 MG CAP PO SCH (09:50)
[2020-02-24] MEDS: Folic Acid 1 MG TAB PO SCH (09:50)
[2020-02-24] MEDS: Famotidine 20 MG TAB PER TUBE SCH ×2 (09:50→20:27)
[2020-02-24] MEDS: Ascorbic Acid 500 mg Chewable Tablet PO SCH ×2 (09:50→20:27)
[2020-02-24] MEDS: Aspirin 325 MG TAB PO SCH (09:50)
[2020-02-24] MEDS: Enoxaparin Sodium 30 MG/0.3 ML SYRINGE SC SCH ×2 (09:50→20:26)
[2020-02-24] MEDS: Thiamine 100 MG TAB PO SCH (09:50)
[2020-02-24] MEDS: Atorvastatin Calcium 20 MG TAB PO SCH (09:50)
[2020-02-24] MEDS: Multivitamin W/ Minerals 1 TAB PO SCH (09:50)
[2020-02-24] MEDS: RisperDAL M-TAB 1 MG TAB SL SCH (09:50)
[2020-02-24] MEDS: Ferrous Sulfate 325 MG TAB PO SCH ×2 (09:50→20:27)
[2020-02-24] MEDS: Insulin Glargine 5 UNITS in Pre-Filled Syringe 1 EACH SC SCH ×2 (09:51→20:26)
[2020-02-24] MEDS: Silver Sulfadiazine 50 GM TUBE TOP SCH ×2 (09:56→20:29)
[2020-02-24] MEDS: Amlodipine 5 MG TAB PO SCH (09:56)
[2020-02-24] MEDS: Lisinopril 20 MG TAB PO SCH (09:56)
[2020-02-24] MEDS: Metoprolol Tartrate 25 MG TAB PO SCH (09:56)
[2020-02-24] MEDS: Hydrochlorothiazide 25 MG TAB PO SCH (09:56)
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
[2020-02-24] MEDS: Zinc Sulfate 220 MG CAP PO SCH (20:27)
[2020-02-25] MEDS: Oxazepam 10 MG CAP PO SCH ×2 (06:33→17:22)
[2020-02-25] MEDS: Acetaminophen 500 MG TAB PO SCH ×3 (06:34→17:22)
[2020-02-25] MEDS: cloNIDine 0.1 MG TAB PO SCH ×3 (06:35→17:22)
[2020-02-25] MEDS: Amlodipine 5 MG TAB PO SCH (06:47)
[2020-02-25] MEDS: Metoprolol Tartrate 25 MG TAB PO SCH (06:47)
[2020-02-25] MEDS: Hydrochlorothiazide 25 MG TAB PO SCH (06:47)
[2020-02-25] MEDS: Insulin Glargine 5 UNITS in Pre-Filled Syringe 1 EACH SC SCH (09:11)
[2020-02-25] MEDS: Ascorbic Acid 500 mg Chewable Tablet PO SCH (09:13)
[2020-02-25] MEDS: Aspirin 325 MG TAB PO SCH (09:13)
[2020-02-25] MEDS: Enoxaparin Sodium 30 MG/0.3 ML SYRINGE SC SCH (09:13)
[2020-02-25] MEDS: Tamsulosin HCl 0.4 MG CAP PO SCH (09:13)
[2020-02-25] MEDS: Lisinopril 20 MG TAB PO SCH (09:14)
[2020-02-25] MEDS: Thiamine 100 MG TAB PO SCH (09:14)
[2020-02-25] MEDS: Ferrous Sulfate 325 MG TAB PO SCH (09:14)
[2020-02-25] MEDS: Folic Acid 1 MG TAB PO SCH (09:14)
[2020-02-25] MEDS: Atorvastatin Calcium 20 MG TAB PO SCH (09:14)
[2020-02-25] MEDS: Famotidine 20 MG TAB PER TUBE SCH (09:14)
[2020-02-25] MEDS: RisperDAL M-TAB 1 MG TAB SL SCH (09:14)
[2020-02-25] MEDS: Multivitamin W/ Minerals 1 TAB PO SCH (09:14)
[2020-02-25] MEDS: Silver Sulfadiazine 50 GM TUBE TOP SCH (09:15)
[2020-02-25] MEDS: Insulin Regular 300 UNITS/3 ML VIAL SC PRN (12:26)
[2020-02-25 15:54] VITALS: TEMP 98.9
[2020-02-25 17:23] VITALS: BP 179/120
== END 2020-02-25 18:41 | DRG 3 ==
LOC: ERS 00:06 → ERHOLD 01:44 → CCU 07:22 → IMCU/EMU 02-19 17:28 → SJJU 02-20 15:41 → SURG A 02-22 02:22
PROVIDERS: ADMIT Surgery; ATTEND Surgery
PROC: 5A1955Z Respiratory Ventilation, Greater than 96 Consecutive Hours (ICD-10-PCS; 2020-02-02)
PROC: 5A12012 Performance of Cardiac Output, Single, Manual (ICD-10-PCS; 2020-02-02)
PROC: 5A2204Z Restoration of Cardiac Rhythm, Single (ICD-10-PCS; 2020-02-02)
PROC: 3E033XZ Introduction of Vasopressor into Peripheral Vein, Percutaneous Approach (ICD-10-PCS; 2020-02-02)
PROC: 30233L1 Transfusion of Nonautologous Fresh Plasma into Peripheral Vein, Percutaneous Approach (ICD-10-PCS; 2020-02-02)
PROC: 30233N1 Transfusion of Nonautologous Red Blood Cells into Peripheral Vein, Percutaneous Approach (ICD-10-PCS; 2020-02-02)
PROC: 0BH17EZ Insertion of Endotracheal Airway into Trachea, Via Natural or Artificial Opening (ICD-10-PCS; 2020-02-02)
PROC: 0DH673Z Insertion of Infusion Device into Stomach, Via Natural or Artificial Opening (ICD-10-PCS; 2020-02-02)
PROC: 03HY32Z Insertion of Monitoring Device into Upper Artery, Percutaneous Approach (ICD-10-PCS; 2020-02-02)
PROC: 06HY33Z Insertion of Infusion Device into Lower Vein, Percutaneous Approach (ICD-10-PCS; 2020-02-02)
PROC: 0QS706Z Reposition Left Upper Femur with Intramedullary Internal Fixation Device, Open Approach (ICD-10-PCS; 2020-02-03)
PROC: 0QS606Z Reposition Right Upper Femur with Intramedullary Internal Fixation Device, Open Approach (ICD-10-PCS; 2020-02-03)
PROC: 0QSH05Z Reposition Left Tibia with External Fixation Device, Open Approach (ICD-10-PCS; 2020-02-03)
PROC: 0B9J8ZX Drainage of Left Lower Lung Lobe, Via Natural or Artificial Opening Endoscopic, Diagnostic (ICD-10-PCS; 2020-02-04)
PROC: 0B9C8ZX Drainage of Right Upper Lung Lobe, Via Natural or Artificial Opening Endoscopic, Diagnostic (ICD-10-PCS; 2020-02-04)
PROC: 0B9G8ZX Drainage of Left Upper Lung Lobe, Via Natural or Artificial Opening Endoscopic, Diagnostic (ICD-10-PCS; 2020-02-04)
PROC: 0B9F8ZX Drainage of Right Lower Lung Lobe, Via Natural or Artificial Opening Endoscopic, Diagnostic (ICD-10-PCS; 2020-02-04)
PROC: 06H03DZ Insertion of Intraluminal Device into Inferior Vena Cava, Percutaneous Approach (ICD-10-PCS; 2020-02-05)
PROC: 0B113F4 Bypass Trachea to Cutaneous with Tracheostomy Device, Percutaneous Approach (ICD-10-PCS; principal; 2020-02-06)
PROC: 0B9J8ZZ Drainage of Left Lower Lung Lobe, Via Natural or Artificial Opening Endoscopic (ICD-10-PCS; 2020-02-06)
PROC: 0B9G8ZZ Drainage of Left Upper Lung Lobe, Via Natural or Artificial Opening Endoscopic (ICD-10-PCS; 2020-02-06)
PROC: 02HV33Z Insertion of Infusion Device into Superior Vena Cava, Percutaneous Approach (ICD-10-PCS; 2020-02-06)
PROC: 0PSG04Z Reposition Left Humeral Shaft with Internal Fixation Device, Open Approach (ICD-10-PCS; 2020-02-07)
PROC: 0B9J8ZX Drainage of Left Lower Lung Lobe, Via Natural or Artificial Opening Endoscopic, Diagnostic (ICD-10-PCS; 2020-02-11)
PROC: 0B9C8ZX Drainage of Right Upper Lung Lobe, Via Natural or Artificial Opening Endoscopic, Diagnostic (ICD-10-PCS; 2020-02-11)
PROC: 0B9G8ZX Drainage of Left Upper Lung Lobe, Via Natural or Artificial Opening Endoscopic, Diagnostic (ICD-10-PCS; 2020-02-11)
PROC: 0B9F8ZX Drainage of Right Lower Lung Lobe, Via Natural or Artificial Opening Endoscopic, Diagnostic (ICD-10-PCS; 2020-02-11)
PROC: 06PY3DZ Removal of Intraluminal Device from Lower Vein, Percutaneous Approach (ICD-10-PCS; 2020-02-23)
DX: S06.6X9A Traumatic subarachnoid hemorrhage with loss of consciousness of unspecified duration, initial encounter (principal); S72.21XA Displaced subtrochanteric fracture of right femur, initial encounter for closed fracture; S72.142A Displaced intertrochanteric fracture of left femur, initial encounter for closed fracture; S82.832B Other fracture of upper and lower end of left fibula, initial encounter for open fracture type I or II; J96.00 Acute respiratory failure, unspecified whether with hypoxia or hypercapnia; I46.9 Cardiac arrest, cause unspecified; I21.4 Non-ST elevation (NSTEMI) myocardial infarction; J69.0 Pneumonitis due to inhalation of food and vomit; S32.019A Unspecified fracture of first lumbar vertebra, initial encounter for closed fracture; S32.029A Unspecified fracture of second lumbar vertebra, initial encounter for closed fracture; S32.039A Unspecified fracture of third lumbar vertebra, initial encounter for closed fracture; S32.041A Stable burst fracture of fourth lumbar vertebra, initial encounter for closed fracture; S32.059A Unspecified fracture of fifth lumbar vertebra, initial encounter for closed fracture; S27.0XXA Traumatic pneumothorax, initial encounter; S32.592A Other specified fracture of left pubis, initial encounter for closed fracture; S32.591A Other specified fracture of right pubis, initial encounter for closed fracture; S22.42XA Multiple fractures of ribs, left side, initial encounter for closed fracture; S42.402A Unspecified fracture of lower end of left humerus, initial encounter for closed fracture; S82.302B Unspecified fracture of lower end of left tibia, initial encounter for open fracture type I or II; E87.2 Acidosis; S36.892A Contusion of other intra-abdominal organs, initial encounter; I47.2 Ventricular tachycardia; S27.322A Contusion of lung, bilateral, initial encounter; D62 Acute posthemorrhagic anemia; E87.0 Hyperosmolality and hypernatremia; E87.1 Hypo-osmolality and hyponatremia; N17.9 Acute kidney failure, unspecified; S36.113A Laceration of liver, unspecified degree, initial encounter; J90 Pleural effusion, not elsewhere classified; Z20.828 Contact with and (suspected) exposure to other viral communicable diseases; V47.0XXA Car driver injured in collision with fixed or stationary object in nontraffic accident, initial encounter; S02.831A Fracture of medial orbital wall, right side, initial encounter for closed fracture; S02.19XA Other fracture of base of skull, initial encounter for closed fracture; S24.109A Unspecified injury at unspecified level of thoracic spinal cord, initial encounter; S82.401A Unspecified fracture of shaft of right fibula, initial encounter for closed fracture; R40.2431 Glasgow coma scale score 3-8, in the field [EMT or ambulance]; S02.612A Fracture of condylar process of left mandible, initial encounter for closed fracture; S02.611A Fracture of condylar process of right mandible, initial encounter for closed fracture; F10.129 Alcohol abuse with intoxication, unspecified; E87.6 Hypokalemia; S91.311A Laceration without foreign body, right foot, initial encounter; T24.231A Burn of second degree of right lower leg, initial encounter; T31.0 Burns involving less than 10% of body surface; S61.215A Laceration without foreign body of left ring finger without damage to nail, initial encounter; D47.3 Essential (hemorrhagic) thrombocythemia; S61.217A Laceration without foreign body of left little finger without damage to nail, initial encounter; F14.129 Cocaine abuse with intoxication, unspecified; T79.6XXA Traumatic ischemia of muscle, initial encounter; E83.51 Hypocalcemia; S13.4XXA Sprain of ligaments of cervical spine, initial encounter; E83.42 Hypomagnesemia; E83.39 Other disorders of phosphorus metabolism; E11.65 Type 2 diabetes mellitus with hyperglycemia; Z78.1 Physical restraint status
CPT/HCPCS: 29105; 29515; 31624; 36415; 36416; 36430; 36556; 37191; 51702; 70450; 70486; 70496; 70498; 71045; 71250; 71275; 72125; 72141; 72146; 72148; 72170; 74018; 74177; 75825; 76000; 76942; 80048; 80053; 80306; 80307; 81001; 81003; 81015; 82550; 82553; 82805; 83605; 83735; 83880; 84100; 84484; 85007; 85025; 85027; 85610; 85730; 86850; 86900; 86901; 87040; 87070; 87077; 87086; 87186; 87205; 87324; 87449; 92950; 93005; 93010; 93306; 93970; 94002; 94003; 94640; 96365; 96366; 96375; 96376; 99292; C1713; G0390; J0171; J0690; J0696; J1170; J1364; J1630; J1644; J1650; J1815; J1940; J1956; J2001; J2060; J2248; J2250; J2270; J2370; J2405; J2543; J2704; J2930; J3010; J3370; J3475; J3480; J3490; J7030; J7050; J7620; P9016; P9048; Q9967; S0028; U0002

== ENCOUNTER 2020-06-13 11:41 | Outpatient (CLI) | payer OTHER | END 2020-06-13 11:42 | disposition home or self-care (01) | LOC: LABBT 11:41 | PROVIDERS: ATTEND Orthopaedic Surgery | DX: S82.872A Displaced pilon fracture of left tibia, initial encounter for closed fracture (principal); Z20.822 Contact with and (suspected) exposure to COVID-19 | CPT/HCPCS: 87635; U0003; U0005 ==

== ENCOUNTER 2020-06-17 09:50 | Day surgery (SDC) | payer OTHER ==
[2020-06-14 11:45] VITALS: BMI 25.6
[2020-06-17] MEDS ORDERED: CEFAZOLIN 1 GM VIAL ONE (12:24)
[2020-06-17] MEDS ORDERED: Fentanyl 100 MCG/2 ML VIAL ONE ×2 (12:27→13:08)
[2020-06-17] MEDS ORDERED: Sodium Chloride 0.9% 100 ML ONE (12:29)
[2020-06-17] MEDS ORDERED: PROPOFOL 200 MG/20 ML VIAL ONE (12:44)
== END 2020-06-17 14:25 | disposition home or self-care (01) ==
LOC: SDC 09:50
PROVIDERS: ATTEND Orthopaedic Surgery
PROC: 0QPHX5Z Removal of External Fixation Device from Left Tibia, External Approach (ICD-10-PCS; principal; 2020-06-17)
DX: S82.872D Displaced pilon fracture of left tibia, subsequent encounter for closed fracture with routine healing (principal); E11.9 Type 2 diabetes mellitus without complications; I10 Essential (primary) hypertension; Z79.84 Long term (current) use of oral hypoglycemic drugs; Z79.899 Other long term (current) drug therapy; V89.2XXD Person injured in unspecified motor-vehicle accident, traffic, subsequent encounter
CPT/HCPCS: J0690; J2704; J3010; J3490